=== PATIENT | male | born 1955 | race Caucasian/White ===

== ENCOUNTER 2019-03-02 11:40 | Emergency (ER) | payer BC ==
[2019-03-02] MEDS ORDERED: hydrALAZINE IV* 20 MG/ML VIAL IV SLOW PU ONE (12:18)
--- NOTE | 2019-03-02 12:21 | ED ---
Hypertension - HPI Summary HPI Summary: 64-year-old male presents with high blood pressure today. He states he has had lymph node biopsy today and he noted that his blood pressure increased over 200 after the procedure. He denies any symptoms currently. No chest pain shortness of breath headache or dizziness. No abdominal pain. No nausea or vomiting. Denies any history of high blood pressure. He has no family history of high blood pressure. Has never been on blood pressure medications. - History of Current Complaint Chief Complaint: EDHypertension Stated Complaint: HIGH BLOOD PRESSURE Time Seen by Provider: 03/02/19 12:06 - Allergies/Home Medications Allergies/Adverse Reactions: Allergies Allergy/AdvReac Type Severity Reaction Status Date / Time No Known Allergies Allergy Verified 03/02/19 11:49 PMH/Surg Hx/FS Hx/Imm Hx Endocrine/Hematology History: Denies: Hx Anticoagulant Therapy Cardiovascular History: Denies: Hx Cardiac Arrest Infectious Disease History: No Infectious Disease History: Denies: Traveled Outside the [place] in Last 30 Days - Family History Known Family History: Negative: Hypertension - Social History Alcohol Use: Daily Substance Use Type: Reports: None Smoking Status (MU): Light Every Day Tobacco Smoker Type: Cigarettes Amount Used/How Often: 1/2ppd Length of Time of Smoking/Using Tobacco: 44 years Have You Smoked in the Last Year: Yes Review of Systems Negative: Fever Positive: Other - high bp. Negative: Chest Pain Negative: Shortness Of Breath Negative: Abdominal Pain Negative: Headache All Other Systems Reviewed And Are Negative: Yes Physical Exam Triage Information Reviewed: Yes Vital Signs On Initial Exam: Initial Vitals Temp Pulse Resp BP Pulse Ox 98.5 F 58 16 207/107 95 03/02/19 11:49 03/02/19 11:49 03/02/19 11:49 03/02/19 11:49 03/02/19 11:49 Vital Signs Reviewed: Yes Appearance: Positive: Well-Appearing Skin: Positive: Warm, Dry Head/Face: Positive: Normal Head/Face Inspection Eyes: Positive: Normal, Conjunctiva Clear ENT: Positive: Pharynx normal Respiratory/Lung Sounds: Positive: Clear to Auscultation, Breath Sounds Present Cardiovascular: Positive: Normal, RRR Abdomen Description: Positive: Nontender, Soft Bowel Sounds: Positive: Present Musculoskeletal: Positive: Normal Neurological: Positive: Normal Psychiatric: Positive: Normal Diagnostics - Vital Signs Vital Signs Temp Pulse Resp BP Pulse Ox 03/02/19 11:49 98.5 F 58 16 207/107 95 - Laboratory Result Diagrams: 03/02/19 13:34 03/02/19 13:15 Lab Statement: Any lab studies that have been ordered have been reviewed, and results considered in the medical decision making process. - Radiology chest Radiology Interpretation Completed By: Radiologist Summary of Radiographic Findings: IMPRESSION: NO ACTIVE CARDIOPULMONARY DISEASE. - EKG No standard instances Cardiac Rate: Bradycardia EKG Rhythm: Sinus Bradycardia Summary of EKG Findings: sinus bradycardia Re-Evaluation - Re-Evaluation First Eval Re-Evaluation Time: 13:52 Comment: bp is still 200 Second Eval Re-Evaluation Time: 14:32 Comment: discussed results, bp is still elevated Third Eval Re-Evaluation Time: 15:01 Change: Unchanged Comment: patient still has no symptoms, bp is still elevated. patient states does not want to stay here anymore. patient is asx. discussed will have continue chlorthalidone at home, patient will return if develop chest pain or SOB. patient understand and agrees with plan. Hypertension Course/Dx - Course Course Of Treatment: 64-year-old male presents with high blood pressure today. He states he has had lymph node biopsy today and he noted that his blood pressure increased over 200 after the procedure. He denies any symptoms currently. No chest pain shortness of breath headache or dizziness. No abdominal pain. No nausea or vomiting. Denies any history of high blood pressure. He has no family history of high blood pressure. Has never been on blood pressure medications. On exam has normal physical exam. EKG shows sinus bradycardia. gave hydrazaline and bp did not change. wbc normal. chest xray normal. renal function normal. lft elevated but patient states does drink ETOH daily. will have follow up with primary about such. no abd pain today. gave clonidine and blood pressure same. patient does not want to stay until blood pressure decreases. as is asx discussed will discharge. will start on chlorthalidone. told follow up with primary. patient understand and agrees with plan. - Diagnoses Differential Diagnosis/HQI PQRI: Hypertension, Hypertensive Urgency, Renal Disease Provider Diagnoses: Hypertension Discharge - Sign-Out/Discharge Documenting (check all that apply): Patient Departure Patient Received Moderate/Deep Sedation with Procedure: No - Discharge Plan Condition: Stable Disposition: HOME Prescriptions: Chlorthalidone TAB* [Hygroton TAB*] 25 mg PO DAILY #14 tab Patient Education Materials: DASH Eating Plan (ED), Hypertension (ED) Referrals: Phyllis Sheridan NP [Primary Care Provider] - Additional Instructions: will start on clorthalidone daily follow up with primary about blood pressure and liver function as is elevated at this visit Return to ED if develop chest pain, shortness of breath, or any new or worsening symptoms - Billing Disposition and Condition Condition: STABLE Disposition: Home
[2019-03-02 12:59] LABS: Urine Appearance Cloudy; Urine Bilirubin Negative (Negative); Urine Blood Negative (Negative); Urine Color Yellow; Urine Glucose Negative (Negative); Urine Ketones Negative (Negative); Urine Nitrite Negative (Negative); Urine Protein Negative (Negative); Urine Specific Gravity 1.017 (1.010-1.030); Urine Urobilinogen Positive (Negative)
[2019-03-02] MEDS ORDERED: cloNIDine TAB* 0.1 MG PO ONE (13:52)
[2019-03-02 13:54] LABS: Hematocrit 46 % (42-52); Hemoglobin 15.8 g/dL (14.0-18.0); Mean Corpuscular HGB Conc 35 g/dL (31-36); Mean Corpuscular Hemoglobin 33 pg (27-31); Mean Corpuscular Volume 96 fL (80-94); Red Blood Count 4.75 10^6 /uL (4.18-5.48); Red Cell Distribution Width 14 % (10-15); White Blood Count 5.7 10^3/uL (3.5-10.8)
[2019-03-02 14:03] LABS: Troponin I 0.01 ng/mL (<0.04)
[2019-03-02 14:04] LABS: Albumin 3.7 g/dL (3.2-5.2); BUN/Creatinine Ratio 31.3 (8-20); EGFR African American 213.7 (>60); EGFR Non-African American 176.6 (>60); Globulin 3.7 g/dL (2-4); Potassium 4.2 mmol/L (3.5-5.0); Total Bilirubin 1.3 mg/dL (0.2-1.0); Total Protein 7.4 g/dL (6.4-8.9)
[2019-03-02 14:29] LABS: ABS Basophils 0.1 10^3/ul (0-0.2); ABS Eosinophils 0.2 10^3/ul (0-0.6); ABS Lymphocytes 1.8 10^3/ul (1.0-4.8); ABS Monocytes 0.5 10^3/ul (0-0.8); ABS Neutrophils 3.1 10^3/ul (1.5-7.7); Eosinophil % 3.3 %; Lymphocyte % 32.6 %; Mean Platelet Volume 9.6 fL (7.4-10.4); Nucleated Red Blood Cells % 0.2; Platelet Count 83 10^3/uL (150-450)
[2019-03-02] MEDS ORDERED: Hydrochlorothiazide TAB* 50 MG PO ONE (14:35)
[2019-03-02] MEDS ORDERED: Chlorthalidone TAB* 50 MG PO ONE (14:46)
[2019-03-02 15:16] VITALS: BP 148/82
== END 2019-03-02 15:09 | disposition home or self-care (01) ==
LOC: ED 11:40
DX: I10 Essential (primary) hypertension (principal); F17.210 Nicotine dependence, cigarettes, uncomplicated
CPT/HCPCS: 36415; 71045; 80053; 81003; 84484; 85025; 93005; 96374; 99283; A9270-GY; J0360

== ENCOUNTER → 2019-03-26 12:17 | Day surgery (SDC) | payer BC ==
[~2019-03-26 12:17] MED LIST: Buffered Lidocaine 1% SYRIN* 1 ML/SYRINGE INTRADERM ONE; Bupivacaine 0.5% W/EPI SDV* 30 ML VIAL ONE; Dexamethasone IV* 4 MG/ML 1 ML (4 MG) ONE; Famotidine IV* 10 MG/ML 2 ML (20 mg) IV ONE; Famotidine IV* 10 MG/ML 2 ML (20 mg) ONE; KETAMINE HCL* 50 MG/ML 10 ML VIAL ONE; Ketorolac INJ* 30 MG/ML 1 ML VIAL ONE; Labetalol IV* 5 MG/ML 20 ML VIAL ONE; Lactated Ringers 1000 ML Bag* 1,000 ML IV SCH; Lidocaine 1% INJ* 10 MG/ML 30 ML SDV ONE; Lidocaine 2% PF * 5 ML VIAL ONE; Midazolam* 1 MG/ML 5 ML VIAL (5 MG) ONE; Naloxone* 0.4 MG/ML 1 ML VIAL IV PRN; Ondansetron INJ* 2 MG/ML VIAL IV PRN; Ondansetron INJ* 2 MG/ML VIAL ONE; Propofol* 10 MG/ML 20 ML BTL ONE; ceFAZolin 2 GM in NS PREMIX(*) 2 GM/100 ML BAG IVPB ONE; fentaNYL* 50 MCG/ML 2 ML VIAL (100 MCG VIAL) IV PRN; fentaNYL* 50 MCG/ML 2 ML VIAL (100 MCG VIAL) ONE; hydrALAZINE IV* 20 MG/ML VIAL ONE; oxyCODONE/Acetamin 5/325 MG* TAB PO PRN
[2019-03-26 17:40] VITALS: BP 182/92
--- NOTE | 2019-03-26 21:05 | OP ---
CC: Dr. Dante Ford; Phyllis Sheridan NP * DATE OF OPERATION: 03/26/19 - [facility] DATE OF : 59 SERVICE: General Surgery. ATTENDING SURGEON: Linda Chou MD AIRPLANE GASTANK LINER ASSEMBLER: None. ANESTHESIOLOGIST: Dr. Yomi Snell. ANESTHESIA: Local/MAC anesthesia. PRE-OP DIAGNOSIS: Lymphoma. POST-OP DIAGNOSIS: Lymphoma. OPERATIVE PROCEDURE: Excisional biopsy of right axillary lymph node. SPECIMEN: Right axillary lymph node. ESTIMATED BLOOD LOSS: Approximately 20 cc. INDICATION FOR SURGERY: Mr. Fierro is a 64-year-old gentleman with recently diagnosed lymphoma after work up for incidental right axillary adenopathy discovered on a CT of the chest. He had previously undergone an FNA biopsy of this large right axillary lymph node; however, he now requires an excisional biopsy for further diagnostics and characterization of his lymphoma. He understood the risks, benefits, and alternatives of the procedure and he wished to proceed. DESCRIPTION OF PROCEDURE: The patient was brought back to the operating room and placed on the operating table in supine position. He had an IV placed in his left foot given the difficulty of obtaining peripheral access. Therefore, sequential compression device was not placed. He underwent MAC and local anesthesia and antibiotics were administered. A small bump was placed under his right shoulder. His right arm was placed on an arm board and preoperatively an ultrasound was performed at the bedside showing that the lymph node was somewhat deepand adjacent to the chest wall. It was felt to be very deep, but palpable on exam. An incision was made in the axilla and the axillary fat pad was dissected out and after exploration of the axilla, the lymph node was identified very deep within axilla and adjacent to the chest wall. It was approximately 4 x 3 cm. It was dissected out in its entirety and then was removed from the axilla and sent to the lab as a fresh sample for flow cytometry. After it was excised, careful hemostasis was obtained in the axilla and the cavity was irrigated with saline. Given how deep this the lymph node was , the deep axilllary fat pad was reapproximated using interrupted 3-0 Vicryl sutures and then the skin was closed using running 4-0 Monocryl suture. Sterile dressing was in place. The patient's anesthesia was reversed and he was taken to the PACU in stable condition. At the end of the case, all counts were correct and I was present during the entirety of the case. [id number]/[facility] #: [id number] [facility]
[2019-04-06 17:42] LABS: BLYM Result Summary Negative; BLYM Tissue ID AS19-8118-A
== END | disposition home or self-care (01) ==
LOC: OR 12:17
PROVIDERS: ATTEND Surgery
DX: C85.14 Unspecified B-cell lymphoma, lymph nodes of axilla and upper limb (principal); I10 Essential (primary) hypertension; F17.200 Nicotine dependence, unspecified, uncomplicated; R94.31 Abnormal electrocardiogram [ECG] [EKG]; F10.11 Alcohol abuse, in remission
CPT/HCPCS: 88184; 88185; 88187; 88188; 88189; 88305; 88333; 88341; 88342; 88360; 88365; 88377; J0360; J0690; J1100; J1885; J2250; J2405; J2704; J3010

== ENCOUNTER → 2019-04-15 05:32 | Day surgery (SDC) | payer BC ==
[~2019-04-15 05:32] MED LIST changes: +Acetaminophen TAB* 325 MG PO PRN; -Bupivacaine 0.5% W/EPI SDV* 30 ML VIAL ONE; +Bupivacaine 0.5%* 50 ML MDV VIAL ONE; +Chlorthalidone TAB* 50 MG PO ONE; -Dexamethasone IV* 4 MG/ML 1 ML (4 MG) ONE; +EPHEDrine (Pressors)* 50 MG/ML VIAL ONE; +Esmolol* 10 MG/ML 10 ML (100 mg) ONE; -Famotidine IV* 10 MG/ML 2 ML (20 mg) IV ONE; -Famotidine IV* 10 MG/ML 2 ML (20 mg) ONE; -KETAMINE HCL* 50 MG/ML 10 ML VIAL ONE; -Ketorolac INJ* 30 MG/ML 1 ML VIAL ONE; -Labetalol IV* 5 MG/ML 20 ML VIAL ONE; +amLODIPine TAB* 5 MG PO ONE; -fentaNYL* 50 MCG/ML 2 ML VIAL (100 MCG VIAL) IV PRN; +hydrALAZINE IV* 20 MG/ML VIAL IV SLOW PU ONE; +hydrALAZINE IV* 20 MG/ML VIAL IV SLOW PU PRN; +hydrALAZINE TAB* 10 MG PO ONE; -oxyCODONE/Acetamin 5/325 MG* TAB PO PRN
--- NOTE | 2019-04-15 10:06 | OP ---
DATE OF OPERATION: 04/15/19 [facility] DATE OF : 59 SERVICE: General Surgery. ATTENDING SURGEON: Linda Chou MD. CD REACTOR OPERATOR: None. ANESTHESIOLOGIST: Dr. Evgeny Beltran. ANESTHESIA: Local/MAC. PRE-OP DIAGNOSIS: B-cell lymphoma. POST-OP DIAGNOSIS: B-cell lymphoma. OPERATIVE PROCEDURE: Aborted port placement. INDICATIONS FOR SURGERY: Mr. Fierro is a 64-year-old gentleman with a history of B-cell lymphoma, who requires a port for chemotherapy. He understood the risks, benefits, and alternatives of the surgery, and he wished to proceed. DESCRIPTION OF PROCEDURE: The patient was brought back to the operating room and placed on the operating table in the supine position. Sequential compression devices were placed in the bilateral lower extremities for DVT prophylaxis. Antibiotics were administered. The patient had presented to the hospital with very elevated blood pressures, but he was given antihypertensive medications and his systolics were brought down to 180s. However, Dr. Beltran felt that it will be unsafe to induce general anesthesia. Therefore, we proceeded with performing the procedure with MAC anesthesia. He had a right antecubital peripheral IV that was poorly functional. However, at the start of the case it was functioning fairly well. Therefore, the patient's neck was prepped and draped in normal sterile fashion and then prior to beginning the procedure, time-out was performed verifying the patient's name, MR number, and the procedure to be performed. Using an ultrasound, the right internal jugular vein was identified and approximately 1 cc of local anesthesia consisting of 0.5 % Marcaine and 1% lidocaine was infiltrated into the subcutaneous skin at the neck. However, the patient became very agitated and the IV was noted to be still somewhat difficult to function reliably. It was difficult to obtain an additional IV even though this was attempted several times by Dr. Beltran. Therefore, Dr. Beltran thought it was safest to abort the case in order to allow the patient's blood pressure to be better controlled and induce general anesthesia for this port placement. Given this, a dressing was placed at the patient's neck where the local anesthesia had been infiltrated, and the patient was awoken and transferred to a stretcher and taken to the recovery room in stable condition. At the end of the aborted case, the counts were correct and I was present during the entirety of this case. [id number]/[facility] #: [id number] MTDD
--- NOTE | 2019-04-15 11:16 | CONS ---
CC: Phyllis Sheridan NP* CONSULTATION REPORT: DATE OF CONSULT: 04/15/19 PRIMARY CARE PHYSICIAN: Phyllis Sheridan NP. PROVIDER REQUESTING CONSULT: Linda Chou MD.* REASON FOR CONSULTATION: Severe hypertension. HISTORY OF PRESENT ILLNESS: Mr. Fierro is a 64-year-old man with a history of hypertension and recently diagnosed B-cell lymphoma diagnosed after biopsy of right axillary lymph node last month, who presented today for placement of port for chemotherapy. It seems that in the operating room the patient was noted to have systolic blood pressure slightly above 200 that did not respond well to IV hydralazine, so Anesthesia canceled the procedure and the patient is now in the PACU. Medicine consulted for blood pressure management. On interview with the patient, it appears that he takes chlorthalidone 25 mg at home and no other blood pressure medications. He does take naproxen occasionally, but has not taken it recently. He reports that he had no idea that his blood pressure should remain under 130/80, and he reports that his blood pressure is nearly always much higher than this. He states that on morning of procedure he forgot to take his morning chlorthalidone because he was incredibly anxious and since he has been here he has been experiencing a lot of anxiety. He denies headache, chest pain, blurry vision, or shortness of breath. PAST MEDICAL HISTORY: 1. Hypertension. 2. B-cell lymphoma diagnosed in March 2019. 3. Alcohol use disorder. 4. History of hepatitis C. HOME MEDICATIONS: 1. Chlorthalidone 25 mg daily. 2. Naproxen 220 mg every 12 hours as needed for pain. ALLERGIES: No known drug allergies. FAMILY HISTORY: The patient's father had hypertension. His mother had colon cancer, unknown age diagnosis. She also had breast cancer. SOCIAL HISTORY: The patient lives with his partner Kalpana. He is an active smoker and currently smokes approximately half a pack per day and has a total of about 40- pack-year history. The patient also reports frequently drinking alcohol, sometimes he has a 6-pack in 1 day, sometimes it takes him a week to finish a 6-pack. His last drink was last night when he had 4 beers. He denies recreational drug use. He works in construction. REVIEW OF SYSTEMS: A complete 10-point review of systems was performed and pertinent positives and negatives are listed. PHYSICAL EXAM: Afebrile, heart rate 50s, blood pressure 195/99, respiratory rate 16, oxygen saturation 97% on room air. General: He is a well-appearing man in no acute distress, mildly anxious appearing, pleasant, interactive. HEENT: OP clear, moist mucous membranes. Neck: No JVD. Lungs: Clear to auscultation bilaterally. Heart: Regular rate and rhythm. No murmurs, gallops , or rubs. Abdomen: Soft, nontender, nondistended. Extremities: Warm and well perfused. No edema. Neuro: No focal motor deficits. DIAGNOSTIC STUDIES/LAB DATA: Last month had pre-op labs. Macrocytosis without anemia. Creatinine 0.68. AST/ALT 212/175. Hemoglobin A1c 5.5%. ASSESSMENT AND PLAN: Mr. Fierro is a 64-year-old male with B-cell lymphoma and uncontrolled hypertension, who is presenting for port placement today by Surgery, who was found with severe hypertension in the OR, Medicine consulted for blood pressure control. 1. Severe hypertension. The patient missed his morning dose of chlorthalidone. We will restart that now and also add on amlodipine, which should together bring down his blood pressure to stated goal for OR, which is less than 180 systolic. If further blood pressure control is needed, can repeat doses of IV hydralazine, would avoid swathi blocking agents such as IV metoprolol given the patient already has heart rate in the 50s. The patient has been educated on blood pressure goals and need for close outpatient followup for further blood pressure management with goal to prevent heart disease and stroke. The patient educated on relationship between naproxen and elevated blood pressure, reports he has not taken this in days. 2. Active tobacco use. The patient is cutting down from 1 pack to now 1/2 a pack per day. He declines nicotine replacement therapy. He was counseled on other medical options such as Chantix or Wellbutrin. He is aware that he can ask his primary care physician for these. 3. Alcohol use disorder. Labs from last month show elevated AST/ALT, concerning for hepatitis from alcohol use. The patient is not exhibiting any signs of alcohol withdrawal or cirrhosis. The patient educated on the importance of cutting back on his alcohol use. TIME SPENT: Approximately 60 minutes was spent on consultation of this patient , more than half of which was spent at bedside for interview and exam. Thank you for this interesting consult. [id number]/[facility] #: [id number] [place]
[2019-04-15 16:02] VITALS: BP 189/100
== END | disposition home or self-care (01) ==
LOC: OR 05:32
PROVIDERS: ATTEND Surgery
DX: C85.14 Unspecified B-cell lymphoma, lymph nodes of axilla and upper limb (principal); I10 Essential (primary) hypertension; F17.210 Nicotine dependence, cigarettes, uncomplicated
CPT/HCPCS: 76000; A9270-GY; J0360; J0690; J1642; J2250; J2405; J2704; J3010; J3490

== ENCOUNTER 2019-04-15 18:22 | Day surgery (SDC) | payer BC ==
[2019-04-15] MEDS ORDERED: ceFAZolin 2 GM in NS PREMIX(*) 2 GM/100 ML BAG IVPB ONE (20:30)
[2019-04-15] MEDS ORDERED: Heparin 2 UNITS/ML IVPREMIX* 0 ML IV ONE (21:01)
[2019-04-15] MEDS ORDERED: fentaNYL* 50 MCG/ML 2 ML VIAL (100 MCG VIAL) IV PRN (21:12)
[2019-04-15] MEDS ORDERED: DiMENhydriNATE IV* 50 MG/ML VIAL IV PUSH PRN (21:12)
[2019-04-15] MEDS ORDERED: oxyCODONE/Acetamin 5/325 MG* TAB PO PRN (21:12)
[2019-04-15] MEDS ORDERED: Naloxone* 0.4 MG/ML 1 ML VIAL IV PRN (21:12)
[2019-04-15] MEDS ORDERED: Acetaminophen TAB* 325 MG PO PRN (21:12)
[2019-04-15] MEDS ORDERED: hydrALAZINE IV* 20 MG/ML VIAL ONE (22:15)
[2019-04-15] MEDS ORDERED: hydrALAZINE IV* 20 MG/ML VIAL IV SLOW PU PRN (22:18)
[2019-04-15 23:11] VITALS: BP 177/99
--- NOTE | 2019-04-16 01:41 | OP ---
CC: Dr. Dante Ford * DATE OF OPERATION: 04/15/19 - [facility] DATE OF : 59 SERVICE: General surgery. ATTENDING SURGEON: Linda Chou MD. HISTOPATHOLOGY TECHNICIAN: None. ANESTHESIOLOGISTS: Dr. Evgeny Beltran and Dr. Annabella Bailey. ANESTHESIA: General endotracheal anesthesia. PRE-OP DIAGNOSIS: B-cell lymphoma. POST-OP DIAGNOSIS: B-cell lymphoma. OPERATIVE PROCEDURE: Placement of 8-Spanish port in the internal jugular vein on the right side. DEVICES: 8-Spanish port. ESTIMATED BLOOD LOSS: Minimal, less than 10 cc. INDICATIONS FOR SURGERY: Mr. Fierro is a very pleasant 64-year-old gentleman with a history of hypertension who has a new diagnosis of B-cell lymphoma and required a port placement. Of note, early in the morning, he came in for his surgery initially; however, he was very hypertensive. Therefore, the surgery had to be aborted and he presents this evening with improved pressure control and therefore is able to undergo general anesthesia. He understood the risks, benefits, and alternatives of the surgery and he wished to proceed. DESCRIPTION OF PROCEDURE: The patient was brought back to the operating room and placed on the operating table in the supine position. Sequential compression devices were placed in the bilateral lower extremities for DVT prophylaxis. Antibiotics with Ancef were administered. General endotracheal anesthesia was induced, and the patient's right neck and chest wall were prepped and draped in normal sterile fashion. Prior to beginning the procedure , time-out was performed, verifying the patient's name, MR number, and the procedure to be performed. Next, local anesthesia consisting of 0.5% Marcaine and 1% lidocaine was infiltrated into the right neck subcutaneous plane above the internal jugular vein under ultrasound guidance. Next, using a finder needle, the right internal jugular vein was entered under direct visualization. Dark venous blood was aspirated very easily and a guidewire was placed through the finder needle. Under fluoroscopy, the wire was confirmed to be descending into the right atrium and right ventricle and therefore, the needle was removed and the wire was secured to the drape so that it would not be dislodged. Next, an incision was made on the right chest wall approximately 3 fingerbreadths below the clavicle and lateral to the sternum. The skin was divided down to the subcutaneous tissue and a subcutaneous pocket was developed for placement of the port. It fit the port very well; therefore, 2 stay sutures were placed to loosely secure the port to the chest wall using 3-0 Prolene suture. However, they were not tied in order to allow for the catheter to be later secured to the port. Next, local anesthesia was infiltrated into the right chest wall as well as in the direction where the catheter was to be tunneled. The catheter was then tunneled from the port site up towards the neck where the wire was coming out, and after this was done, the peel-away sheath with the introducer was advanced over the guidewire, and introducer and the guidewire were then removed. Under fluoroscopy, the sheath was noted to be in place again descending down into the right atrium and therefore, the catheter was placed through the peel-away sheath and advanced through the sheath as the sheath was being pulled away. Once this was done, the catheter was confirmed to be in place under fluoroscopy and then was pulled back to an approximate point where it was just below the cavoatrial junction. It was cut at the skin level and then it was secured to the port. Once this was done, the port was then further secured to the chest wall by tying 3-0 Prolene sutures that were previously placed, and a Pelayo needle was used to aspirate the port. It aspirated blood very easily and it also infused saline very easily. Next, attention was turned towards closure. Hemostasis was obtained in the subcutaneous pocket. The dermis of the skin at the port site was closed using interrupted 3-0 Vicryl sutures. The skin was closed using a running 4-0 Monocryl suture, and an interrupted 4-0 Monocryl suture was placed at the neck where a skin cecy had been made for the wire and for the catheter to be placed. At the end of the case, a final check with fluoroscopy was performed showing again that the catheter was in place just below the cavoatrial junction and heparinized saline was then infused through the port without difficulty. Sterile dressing was then placed. The patient's anesthesia was reversed and he was taken to the PACU in stable condition. At the end of the case, all counts were correct and I was present during the entirety of the case. In the recovery room a CXR was performed that showed that the catheter was in place at the cavoatrial junction and there was no evidence of a pneumothorax. [id number]/[facility] [place] #: [id number] [facility]ITAL[facility]ico[facility]
== END 2019-04-15 23:10 | disposition home or self-care (01) ==
LOC: OR 18:22
PROVIDERS: ATTEND Surgery
DX: C85.14 Unspecified B-cell lymphoma, lymph nodes of axilla and upper limb (principal); F17.210 Nicotine dependence, cigarettes, uncomplicated; R01.1 Cardiac murmur, unspecified; I10 Essential (primary) hypertension; R05 Cough; Z86.19 Personal history of other infectious and parasitic diseases; F10.20 Alcohol dependence, uncomplicated
CPT/HCPCS: 71045; C1788; J0360; J0690; J1644

== ENCOUNTER 2019-07-18 18:30 | Inpatient (IN) | payer BC ==
[2019-07-18] MEDS ORDERED: LORazepam INJ* 2 MG/ML 1 ML VIAL IV ONE (18:40)
[2019-07-18] MEDS ORDERED: Diltiazem IV push/loading dose 5 MG/ML 5 ML vial (25 mg) IV SLOW PU ONE (18:42)
--- NOTE | 2019-07-18 18:44 | ED ---
Shortness of Breath - HPI Summary HPI Summary: Patient is a 64 y/o M presenting to [facility] via EMS for respiratory distress. He has had increased SOB but is unsure for how long. Patient additionally endorses N/V/D and abdominal pain. EMS had reported that the patient was hypoxic, cyanotic, and fighting to take off his oxygen mask during transport. EMS report initial o2 sat in low 80s. PMHx of B-cell lymphoma, HTN, cirrihosis and hep C is noted. Patient is on chemotherapy. Home medications and allergies are reviewed. - History of Current Complaint Hx Obtained From: Patient, EMS Onset/Duration: Still Present Timing: Constant Current Severity: Severe Associated Signs & Symptoms: Negative - Allergy/Home Medications Allergies/Adverse Reactions: Allergies Allergy/AdvReac Type Severity Reaction Status Date / Time No Known Allergies Allergy Verified 06/08/19 09:59 Home Medications: Home Medications Oxycodone IR 10 MG(NF) 1 - 2 tab PO Q4HR PRN 07/18/19 [History Confirmed ] PMH/Surg Hx/FS Hx/Imm Hx Endocrine/Hematology History: Denies: Hx Anticoagulant Therapy, Hx Bone Marrow Disease, Hx Diabetes, Hx Sickle Cell Disease, Hx Thyroid Disease, Hx Anemia Cardiovascular History: Reports: Hx Hypertension - ON CHLORTHALIDONE Denies: Hx Cardiac Arrest, Hx Pacemaker/ICD, Other Cardiovascular Problems/ Disorders Respiratory History: Denies: Other Respiratory Problems/Disorders - DENIES, BUT COUGH NOTED SEVERAL TIMES DURING PH INTERVIEW GI History: Reports: Hx Cirrhosis - STATES LIVER IS "ENLARGED" Denies: Hx Gastroesophageal Reflux Disease, Other GI Disorders History: Reports: Hx Kidney Stones - 2 YRS AGO Denies: Hx Renal Disease, Other Problems/Disorders Musculoskeletal History: Denies: Other Musculoskeletal History Sensory History: Denies: Hx Contacts or Glasses, Hx Hearing Aid Opthamlomology History: Denies: Hx Contacts or Glasses Neurological History: Denies: Other Neuro Impairments/Disorders Psychiatric History: Denies: Hx Panic Disorder - Cancer History Hx Chemotherapy: Yes - Surgical History Surgery Procedure, Year, and Place: GB 1979. LYMPH NODE REMOVAL 03/2019. DIFFICULT IV STICK, USE VASCULAR US ONLY Hx Anesthesia Reactions: No Infectious Disease History: Reports: Hx Hepatitis - + HEP.C NOT ON ANY MEDS - Family History Known Family History: Negative: Hypertension - Social History Alcohol Use: Weekly Alcohol Amount: 1 CASE BEER / WEEK-STATES WILL NOT DRINK DAY BEFORE SURGERY Substance Use Type: Reports: None Smoking Status (MU): Heavy Every Day Tobacco Smoker Type: Cigarettes Amount Used/How Often: 1/2 TO 3/4 ppd SINCE AGE 20 Length of Time of Smoking/Using Tobacco: 44 years Have You Smoked in the Last Year: Yes Review of Systems Constitutional: Other - EMS reports hypoxia, cyanosis Positive: Shortness Of Breath Positive: Abdominal Pain, Vomiting, Diarrhea, Nausea All Other Systems Reviewed And Are Negative: Yes Physical Exam - Summary Physical Exam Summary: Appearance: The patient is well-nourished in extremis. Skin: The skin is warm and dry. He is mildly jaundiced. HEENT: The head is normocephalic and atraumatic. The pupils are equal and reactive. There is mild scleral icterus. Nares are patent and without drainage. Mouth reveals moist mucous membranes, and the throat is without erythema and exudate. The external ears are intact. The ear canals are patent and without drainage. The tympanic membranes are intact. Neck: The neck is supple with full range of motion and non-tender. There are no carotid bruits. There is no neck vein distension. Respiratory: Chest is non-tender. Lungs are clear to auscultation and breath sounds are symmetrical and equal. He is tachypneic. It is difficult to communicate with the patient secondary to tachypnea. Cardiovascular: Irregular tachycardia is noted. There is no murmur or rub auscultated. There is no peripheral edema and pulses are symmetrical and equal. Abdomen: Abdomen is distended and there are dull sounds to percussion. Musculoskeletal: There is no back tenderness noted. Extremities are non-tender with full range of motion. There is good capillary refill. There is no peripheral edema or calf tenderness elicited. Neurological: Patient is alert and oriented to person, place and time. He answers questions appropriately. The patient has symmetrical motor strength in all four extremities. Cranial nerves are grossly intact. Deep tendon reflexes are symmetrical and equal in all four extremities. Psychiatric: The patient has an appropriate affect and does not exhibit any anxiety or depression. Triage Information Reviewed: Yes Vital Signs On Initial Exam: Initial Vitals Temp Pulse Resp BP Pulse Ox 98.8 F 153 42 124/52 0 07/18/19 18:36 07/18/19 18:36 07/18/19 18:36 07/18/19 18:36 07/18/19 18:36 Vital Signs Reviewed: Yes Procedures - Procedure Summary Procedure Summary: Orotracheal 8.0 cm tube was placed with no sedation usage. No complications during procedure, breath sounds are equal after tube placement. CXR post procedure showed ET tube in place. - Sedation Patient Received Moderate/Deep Sedation with Procedure: No - Intubation Intubation Method: orotracheal Tube Size (cm): 8.0 Breath Sounds after Intubation: equal Intubation Complications: no complications Post Intubation Xray: Yes Progress/Xray Impression: ET tube in place Diagnostics - Laboratory Result Diagrams: 07/18/19 18:44 07/18/19 18:44 Lab Statement: Any lab studies that have been ordered have been reviewed, and results considered in the medical decision making process. - Radiology CXR Radiology Interpretation Completed By: ED Physician Summary of Radiographic Findings: No acute process, pending official report. Post Intubation CXR Radiology Interpretation Completed By: ED Physician Summary of Radiographic Findings: ET tube in place, pending official report. - EKG 1851 Cardiac Rate: Tachycardia - rate of 116 BPM, sinus tachycardia versus MAT. Summary of EKG Findings: EKG showed rate of 116, sinus tachycardia versus MAT. This EKG was reviewed and interpreted by Dr. Blood. 2004 Cardiac Rate: NL - rate of 94 BPM EKG Rhythm: Sinus Rhythm ST Segment: Non-Specific Summary of EKG Findings: EKG showed NSR with rate of 94 BPM, diffuse non- specific ST segments. This EKG was reviewed and interpreted by Dr. Blood. Re-Evaluation - Re-Evaluation First Eval Re-Evaluation Time: 19:38 Comment: BP 55/36, fluids via pressure bag being administered. Course/Dx - Course Course Of Treatment: Mr. Fierro presented in extremis. He was on 100% nonrebreather mask and tachypneic and tachycardic. He was immediately placed on a monitor and evaluated. EMS crew reported that he had been very clear that he did not want to be intubated or on a breathing machine. His initial evaluation revealed him to be tachycardic and irregularly, tachypneic with clear lungs and grossly distended throughout the abdomen with dull percussion. I took his forehead temperature in the room and got 99.7. We had a great deal of difficulty getting a pulse ox to read for him and an ABG was immediately sent. He was switched to BiPAP and given Ativan to help tolerate that as he was very agitated. He was given a bolus of Cardizem for his irregular tachycardia in the 150-160 range. He gradually slowed down and an EKG was obtained which showed a sinus tachycardia at about 100. He became poorly responsive after the Ativan. Initially I was concerned that his diaphragmatic excursion may be part of the problem and was hesitant to give him fluids. A forehead thermometer in the hands of nursing revealed a temp 100.9 and his white blood cells returned at 0.4. At this point he met septic criteria and fluids and cefepime were ordered for him. His ABG revealed him to be likely a respiratory compensation for metabolic acidosis. Indeed his lactate returned at 14. I spoke with Dr. Ford who agreed that he needed to be admitted to the ICU. I spoke with Dr. Schwab who requested the hospitalist be involved. Just after speaking with Dr. Schwab the patient dropped his pressure and we increased fluids. His girlfriend arrived and stated that he has never had a conversation about advanced directives and that she feels he was likely confused in the ambulance ride in. At that point he was very poorly responsive and hypotensive and therefore he was intubated without medications. It was clear that he likely aspirated and I intubated him as I had to suction a lot of brown liquid out of his mouth. He did respond to fluids and his pressure improved. I spoke with Dr. Kaplan for the hospitalist who immediately came to the department to evaluate him. - Diagnoses Provider Diagnoses: Neutropenic sepsis, Neutropenic fever - Physician Notifications Discussed Care of Patient With: Dante Ford Time Discussed With Above Provider: 19:30 Instructed by Provider To: Other - 193 - Patient's case was discussed with Dr. Ford, Dr. Ford recommends admission to ICU. 1933 - Patient's case was discussed with Dr. Marin, Dr. Marin asks that the patient's case be discussed with hospitalist. 1944 - Patient's case was discussed with Dr. Kaplan, Dr. Kaplan accepts for admission. - Critical Care Time Critical Care Time: 75-104 min - 90 minutes Discharge ED - Sign-Out/Discharge Documenting (check all that apply): Patient Departure - admit - Discharge Plan Condition: Fair Disposition: ADMITTED TO [facility] - Billing Disposition and Condition Condition: FAIR Disposition: Admitted to [facility] - Attestation Statements Document Initiated by Chris: Yes Documenting Scribe: MARK ALAN Provider For Whom Chris is Documenting (Include Credential): KANNAN BLOOD MD Scribe Attestation: IMARK, scribed for KANNAN BLOOD MD on 07/18/19 at 2119. Scribe Documentation Reviewed: Yes Provider Attestation: The documentation as recorded by the MARK stevenson accurately reflects the service I personally performed and the decisions made by me, KANNAN BLOOD MD Status of Scribe Document: Viewed
[2019-07-18] MEDS ORDERED: Lorazepam PYXIS KEY ONE (18:45)
[2019-07-18 19:03] LABS: Hematocrit 33 % (42-52); Hemoglobin 10.9 g/dL (14.0-18.0); Mean Corpuscular HGB Conc 33 g/dL (31-36); Mean Corpuscular Hemoglobin 34 pg (27-31); Mean Corpuscular Volume 101 fL (80-94); Mean Platelet Volume 10.6 fL (7.4-10.4); Platelet Count 34 10^3/uL (150-450); Red Blood Count 3.24 10^6 /uL (4.18-5.48); Red Cell Distribution Width 16 % (10-15); White Blood Count 0.4 10^3/uL (3.5-10.8)
[2019-07-18 19:12] LABS: INR 2.04 (0.82-1.09)
[2019-07-18 19:17] LABS: ALT 46 U/L (7-52); AST 47 U/L (13-39); Albumin 2.4 g/dL (3.2-5.2); Alkaline Phosphatase 59 U/L (34-104); Anion Gap 19 mmol/L (2-11); BUN/Creatinine Ratio 18.1 (8-20); Blood Urea Nitrogen 38 mg/dL (6-24); C Reactive Protein 129.92 mg/L (<8.01); CO2 Carbon Dioxide 18 mmol/L (22-32); Calcium 8.4 mg/dL (8.6-10.3); Chloride 98 mmol/L (101-111); EGFR African American 38.9 (>60); EGFR Non-African American 32.2 (>60); Globulin 2.5 g/dL (2-4); Glucose 132 mg/dL (70-100); Potassium 3.7 mmol/L (3.5-5.0); Sodium 135 mmol/L (135-145); Total Protein 4.9 g/dL (6.4-8.9)
[2019-07-18 19:24] LABS: ABS Lymphocytes 0.1 10^3/ul (1.0-4.8); Lymphocyte % 23.5 %; Microcytosis 1+
[2019-07-18 19:26] LABS: ABS Neutrophils 0.3 10^3/ul (1.5-7.7)
[2019-07-18] MEDS ORDERED: NS 0.9% 1000 ML** 2,000 ML IV ONE (19:28)
[2019-07-18] MEDS ORDERED: Cefepime(*) 1 GM in NS 0.9% 50 ML* 50 ML IVPB ONE (19:33)
[2019-07-18] MEDS ORDERED: NS 0.9% 1000 ML** 1,000 ML IV ONE ×3 (19:33→21:32)
[2019-07-18] MEDS ORDERED: Norepinephrine 16MCG/ML IVPRE* 0 MCG/0 ML BAG IV ONE (19:55)
[2019-07-18] MEDS ORDERED: Cefepime 1 GM in Dextrose(*) 1 GM/50 ML BAG IV ONE (20:00)
[2019-07-18] MEDS: Propofol* 100 ML IV SCH ×2 (20:37→21:47)
[2019-07-18 20:56] LABS: Urine Creatinine Concentration 293.02 mg/dL; Urine Sodium Concentration < 18 mmol/L
[2019-07-18] MEDS ORDERED: Vancomycin(*) 1,500 MG in NS 0.9% 250 ML* 250 ML IVPB ONE (21:00)
[2019-07-18 21:01] LABS: Magnesium 1.7 mg/dL (1.9-2.7)
[2019-07-18] MEDS ORDERED: Magnesium Sulfate 2 GM IV* 2 GM/50 ML BAG IVPB ONE (21:22)
[2019-07-18 21:27] LABS: Urine Appearance Cloudy; Urine Bacteria Absent (Absent); Urine Bilirubin Negative (Negative); Urine Blood 1+ (Negative); Urine Color Amber; Urine Glucose 1+(50 mg/dL) (Negative); Urine Ketones Trace (Negative); Urine Nitrite Negative (Negative); Urine Protein 1+(30 mg/dL) (Negative); Urine Red Blood Cell Absent (Absent); Urine Specific Gravity 1.024 (1.010-1.030); Urine Urobilinogen Positive (Negative); Urine White Blood Cell 2+(11-20/hpf) (Absent)
[2019-07-18 21:28] LABS: Fibrinogen > 230.1 mg/dL (110.8-404.3)
[2019-07-18 21:29] LABS: LDH 229 U/L (140-271)
[2019-07-18] MEDS: Norepinephrine 16MCG/ML IVPRE* 4,000 MCG/250 ML BAG IV SCH ×3 (21:29→23:48)
[2019-07-18 22:03] LABS: Uric Acid 4.3 mg/dL (4.4-7.6)
--- NOTE | 2019-07-18 22:29 | ED ---
ED Procedures - Procedure Summary Procedure Summary: Orotracheal 8.0 cm tube was placed with no sedation usage. No complications during procedure, breath sounds are equal after tube placement. CXR post procedure showed ET tube in place. - Central Line Left Subclavian Triple Lumen Central Venous Catheter Central Line Lumen: triple Central Line Procedure: betadine prep, sterile drapes applied, sterile dressing applied Central Line Position: subclavian (L) Anesthesia: Lidocaine cc's of anesthesia: 5 Complications: aspirated some air on first pass Central Line Post Position: sutured, good blood return - Intubation Intubation Method: orotracheal Tube Size (cm): 8.0 Breath Sounds after Intubation: equal Intubation Complications: no complications Post Intubation Xray: Yes Progress/Xray Impression: ET tube in place
[2019-07-18 22:47] LABS: Hematocrit 28 % (42-52); Hemoglobin 8.8 g/dL (14.0-18.0); Mean Corpuscular HGB Conc 32 g/dL (31-36); Mean Corpuscular Hemoglobin 34 pg (27-31); Mean Corpuscular Volume 106 fL (80-94); Mean Platelet Volume 9.3 fL (7.4-10.4); Platelet Count 17 10^3/uL (150-450); Red Blood Count 2.61 10^6 /uL (4.18-5.48); Red Cell Distribution Width 17 % (10-15); White Blood Count 0.4 10^3/uL (3.5-10.8)
[2019-07-18 22:48] LABS: ABS Lymphocytes 0.1 10^3/ul (1.0-4.8); ABS Neutrophils 0.3 10^3/ul (1.5-7.7); Eosinophil % 0.4 %; Lymphocyte % 28.9 %; Nucleated Red Blood Cells % 0.2
[2019-07-18 23:00] LABS: Anion Gap 14 mmol/L (2-11); BUN/Creatinine Ratio 14.7 (8-20); Blood Urea Nitrogen 36 mg/dL (6-24); CO2 Carbon Dioxide 17 mmol/L (22-32); Calcium 7.4 mg/dL (8.6-10.3); Chloride 107 mmol/L (101-111); EGFR African American 32.6 (>60); EGFR Non-African American 26.9 (>60); Potassium 4.2 mmol/L (3.5-5.0); Sodium 138 mmol/L (135-145)
[2019-07-18] MEDS ORDERED: Vasopressin* 100 UNITS in D5W 250 ML BAG* 245 ML IV SCH (23:00)
[2019-07-18] MEDS ORDERED: fentaNYL INFUSION 50 MCG/ML* 2,500 MCG/50 ML BAG IV SCH (23:00)
[2019-07-18 23:02] LABS: Glucose 24 mg/dL (70-100)
[2019-07-18] MEDS ORDERED: Dextrose 50% VIAL 50 ml ONE (23:02)
[2019-07-18 23:04] LABS: Troponin I 0.25 ng/mL (<0.04)
--- NOTE | 2019-07-19 | ED ---
ED Procedures - Procedure Summary Procedure Summary: Orotracheal 8.0 cm tube was placed with no sedation usage. No complications during procedure, breath sounds are equal after tube placement. CXR post procedure showed ET tube in place. - Chest Tube Left Upper Anterior Chest Tube Location: mid clavicular line Chest Tube Procedure: betadine prep, sterile drapes applied, sterile dressing applied Anesthesia: 1% Lidocaine Franklin of Air [place]: No Number of Attempts: 1 Tube Sutured to Skin: Yes Post Procedure CXR?: Yes - reinflation of left lung successful - Intubation Intubation Method: orotracheal Tube Size (cm): 8.0 Breath Sounds after Intubation: equal Intubation Complications: no complications Post Intubation Xray: Yes Progress/Xray Impression: ET tube in place
--- NOTE | 2019-07-19 00:05 | HP ---
HISTORY AND PHYSICAL: DATE OF ADMISSION: 07/18/19 ADMITTING PROVIDER: Ben Kaplan MD. PRIMARY CARE PROVIDER: Phyllis Sheridan NP. OUTPATIENT ONCOLOGIST: Dr. Ford. CHIEF COMPLAINT: Altered mental status, respiratory distress. HISTORY OF PRESENT ILLNESS: Tom Fierro is a 64-year-old male with past medical history of hypertension, alcoholism, chronic hepatitis C infection, and recently B cell lymphoma for which he has been receiving chemotherapy. He had his last chemotherapy approximately a week prior to presentation, perhaps . He is not able to provide history as he is currently intubated. His girlfriend, Kalpana, says that he has been altered for the last 2 days and "talking crazy." Throughout the day prior to admission had some diarrhea. He has a recent prescription for oxycodone 10 mg to 20 mg q.4 hours p.r.n. She is not sure how much he has been taking. There was concern that he was wheezing and Kalpana called the brother and they transferred him to [facility] Emergency Room. He was initially found to be afebrile at 98.8, but pulse rate was 153, blood pressure 124/52. He was thought to be in multifocal atrial tachycardia and he was given 25mg of IV diltiazem and 1mg of Ativan in the emergency room. He then was spiking fevers, initially 100.9 and then up to 104.5, and he had neutropenia with ANC of 300, bandemia at 13%, INR of 2.0. D-dimer elevated, greater than 1050. Lactic acid of 14.9. Troponin was 0.2. CRP 129, BNP 353, and creatinine bumped at 2.10. Initial ABG, pH of 7.34, PCO2 of 26, PO2 of 177 , bicarb of 17.1. Blood cultures were drawn. He was more agitated after the Ativan and was not tolerating the Bipap and his pressures had fallen to 55/36 and he was intubated for airway protection and respiratory distress. He was given cefepime for neutropenic fever and referred to the hospitalist service for admission and the laborer carpentry dock service had also been notified of his case. He had been started on sepsis fluid bolus and his pressures stabilized, but after initiation of propofol they fell again to 75/45. PAST MEDICAL HISTORY: B-cell lymphoma, on chemotherapy, last approximately 6 days prior to admission; alcoholism; chronic hepatitis C infection since 1988 at least; and hypertension. MEDICATIONS: Included chlorthalidone 25 mg daily and oxycodone 10 mg to 20 mg q.4 hours p.r.n. ALLERGIES: No known drug allergies. FAMILY HISTORY: Father with CAD and CABG; he at age 90. Mother with breast cancer and colon cancer at age 89. He has 2 siblings, unknown health status of those, and a daughter who is 30. SOCIAL HISTORY: The patient is a current smoker of 1-1/2 packs per day for 43 years, 6-pack 3 to 4 times a week. Remote cocaine use. He works as a arriola. His next of kin is listed as sister, Jazmine Fierro. REVIEW OF SYSTEMS: Not obtainable other than as provided by HPI. PHYSICAL EXAMINATION GENERAL APPEARANCE: Acutely ill, intubated. VITAL SIGNS: T-max 104.9; pulse rate initially 155 highest, currently 95; respiratory rate worst was 45; initially was satting 100% on 100% oxygen; blood pressure low at 55/31, currently 75/45. HEENT: Intubated. Pupils reactive 1.5 to 1 on the left, barely reactive on the right. LUNGS: Equal breath sounds anteriorly. No wheezing, rales, or rhonchi. CARDIOVASCULAR: Regular rate and rhythm. No murmurs, rubs, or gallops. ABDOMEN: Soft, distended. No flinching to modest palpation. EXTREMITIES: Warm and well perfused. No peripheral edema. NEUROLOGIC: He reportedly had been able to talk prior to the Ativan, currently intubated, SKIN: No lesions or rashes. DIAGNOSTIC STUDIES/LABORATORY DATA: Labs: White count 0.4, hemoglobin 10.9, hematocrit 33, platelets 34, ANC 300, bands equal 13.0%, INR 2.04, fibrinogen pending. D-dimer greater than 1050. ABG, pH 7.34, PCO2 of 26, PO2 of 177, bicarb 17.1. Sodium 135, potassium 3.7, chloride 98, carbon dioxide 18, anion gap 19, BUN 38, creatinine 2.10, glucose 132, lactic acid 14.9, uric acid pending, calcium 8.4, magnesium 1.7. AST 47, ALT 46, T-bili 2.8. Troponin 0.2 , CRP 129, BNP 353. Total protein 4.9, albumin 2.4. Urine creatinine 293, urine sodium less than 18. Imaging: Chest x-ray formal read pending. Initially, no acute process per my read. He had a repeated chest x-ray after intubation which seems a little more consistent with some interstitial edema. ET tube in place. CT head, formal read pending. CT chest, abdomen, and pelvis noncontrast, formal read pending. EKG demonstrated initially sinus tachycardia, heart rate 116. No ST elevations or depressions. QTc 436. Repeat EKG at 2004, sinus rhythm, rate 94. No ST elevations or depressions. ASSESSMENT AND PLAN: Tom Fierro is a 64-year-old male with past medical history of B-cell lymphoma; on chemotherapy; last approximately 6 days ago, chronic hepatitis C, alcoholism, and hypertension presenting with neutropenic fever, sepsis, acute respiratory failure in the setting of some altered mental status for 2 days, vomiting, and diarrhea. 1. Sepsis. He has bandemia, neutropenic fever and severe lactic acidosis. He is getting sepsis fluid boluses and starting on Levophed if necessary as his pressures have dropped again while intubated and on propofol (will trial off). Repeat lactic acidosis. He has gotten cefepime. We will give him 1 dose of vancomycin. Source is unclear, and still waiting on urinalysis. Per history, probably an aspiration risk given the recent vomiting, altered mental status and high dose of opioids. Add sputum culture, follow up blood cultures, UA, and urine culture. We will repeat the cefepime after weight is entered and can calculate renal dosing. He will be put on neutropenic precautions. We will do MRSA nares. 2. He has acute kidney injury and his FENa is 0.1 consistent with prerenal. He is getting sepsis fluid boluses and maintenance IV fluid for BMP daily. Garcia catheter is to be in place for hemodynamic monitoring and urine output with strict Is and Os. 3. He has elevated troponin. No ischemic changes on EKG, but trend troponins every 3 hours. He has had recent echocardiogram over the summer. Full report is not available, but EF was 65% to 70%. He does have elevated BNP, troponin, and D- dimer. I am getting an ultrasound of his bilateral lower extremities and a ventilation perfusion scan in the morning to rule out pulmonary embolism given his cancer history, tachycardia, and shortness of breath. 4. His platelets are only 34, down from 80 two days prior and has some risk for disseminated intravascular coagulation, awaiting fibrinogen. He is on chemotherapy. I am awaiting LDH and uric acid. He is critically ill and per the girlfriend at the bedside, he is full code. We will get input of oncology in the morning and will be taken over by the laborer carpentry dock service. [id number]/[facility] #: [id number] CONSTANT[place]
[2019-07-19] MEDS ORDERED: Dextrose 50% VIAL 50 ml ONE (00:38)
[2019-07-19] MEDS ORDERED: Dextrose 50% VIAL 50 ml IV ONE ×2 (00:40→07:15)
[2019-07-19] MEDS ORDERED: Sodium Bicarbonate 8.4% IV* 100 MEQ in D5W 1000 ML BAG* 1,000 ML IV SCH (01:00)
[2019-07-19] MEDS: Norepinephrine 16MCG/ML IVPRE* 4,000 MCG/250 ML BAG IV SCH ×2 (02:02→14:40)
[2019-07-19] MEDS ORDERED: Pantoprazole IV* 40 MG IV ONE (03:39)
[2019-07-19 03:41] LABS: ABS Lymphocytes 0.1 10^3/ul (1.0-4.8); ABS Monocytes 0.1 10^3/ul (0-0.8); ABS Neutrophils 0.1 10^3/ul (1.5-7.7); Eosinophil % 0.3 %; Hematocrit 29 % (42-52); Hemoglobin 9.2 g/dL (14.0-18.0); Lymphocyte % 38.6 %; Mean Corpuscular HGB Conc 31 g/dL (31-36); Mean Corpuscular Hemoglobin 33 pg (27-31); Mean Corpuscular Volume 107 fL (80-94); Mean Platelet Volume 9.5 fL (7.4-10.4); Platelet Count 11 10^3/uL (150-450); Red Blood Count 2.74 10^6 /uL (4.18-5.48); Red Cell Distribution Width 17 % (10-15); White Blood Count 0.4 10^3/uL (3.5-10.8)
[2019-07-19 03:51] LABS: ALT 323 U/L (7-52); AST 872 U/L (13-39); Albumin 1.9 g/dL (3.2-5.2); Alkaline Phosphatase 48 U/L (34-104); BUN/Creatinine Ratio 13.2 (8-20); Blood Urea Nitrogen 36 mg/dL (6-24); Calcium 7.1 mg/dL (8.6-10.3); Chloride 107 mmol/L (101-111); EGFR African American 28.7 (>60); EGFR Non-African American 23.8 (>60); Glucose 85 mg/dL (70-100); Potassium 4.6 mmol/L (3.5-5.0); Sodium 136 mmol/L (135-145); Total Protein 3.9 g/dL (6.4-8.9)
[2019-07-19 03:54] LABS: Anion Gap 15 mmol/L (2-11); CO2 Carbon Dioxide 14 mmol/L (22-32)
[2019-07-19] MEDS: Chlorhexidine MOUTHWASH 0.12%* 15 ML UDC TOPICAL SCH ×5 (04:01→22:52)
[2019-07-19] MEDS ORDERED: Sodium Bicarbonate 8.4% VIAL* 10 ML VIAL IV ONE (04:13)
[2019-07-19] MEDS ORDERED: Sodium Bicarbonate 8.4% IV* 50 ML VIAL ONE (04:15)
[2019-07-19] MEDS: Pantoprazole* 80 mg IN NS 80 MG/250 ML BAG IV SCH ×2 (04:26→13:40)
[2019-07-19] MEDS ORDERED: Sodium Bicarbonate 8.4%* 50 ML SYRINGE IV ONE (04:35)
[2019-07-19] MEDS ORDERED: Sodium Bicarbonate 8.4% IV* 150 MEQ in D5W 1000 ML BAG* 1,000 ML IV SCH ×2 (04:48→14:00)
[2019-07-19] MEDS ORDERED: Vancomycin Random Level* NOTE FOLLOW UP ONE (06:00)
[2019-07-19 06:21] LABS: INR 3.33 (0.82-1.09)
[2019-07-19 06:29] LABS: ABS Lymphocytes 0.1 10^3/ul (1.0-4.8); ABS Neutrophils 0.2 10^3/ul (1.5-7.7); Eosinophil % 0.9 %; Hematocrit 27 % (42-52); Hemoglobin 8.3 g/dL (14.0-18.0); Lymphocyte % 40.4 %; Mean Corpuscular HGB Conc 31 g/dL (31-36); Mean Corpuscular Hemoglobin 34 pg (27-31); Mean Corpuscular Volume 109 fL (80-94); Platelet Count 37 10^3/uL (150-450); Red Blood Count 2.46 10^6 /uL (4.18-5.48); Red Cell Distribution Width 17 % (10-15); White Blood Count 0.3 10^3/uL (3.5-10.8)
[2019-07-19 06:34] LABS: Vancomycin Random 14.7 mcg/mL
[2019-07-19 06:36] LABS: BUN/Creatinine Ratio 11.6 (8-20); Blood Urea Nitrogen 35 mg/dL (6-24); Calcium 7.2 mg/dL (8.6-10.3); Chloride 106 mmol/L (101-111); EGFR African American 25.5 (>60); EGFR Non-African American 21.1 (>60); Glucose 62 mg/dL (70-100); Sodium 139 mmol/L (135-145)
[2019-07-19 06:38] LABS: Anion Gap 19 mmol/L (2-11); Troponin I 0.39 ng/mL (<0.04)
--- NOTE | 2019-07-19 06:59 | PN ---
Sepsis Event Evaluation Date of Evaluation: 07/19/19 Time of Evaluation: 00:10 Current Stage of Sepsis: Septic Shock Vital Signs - Last 12 Hours: Vital Signs - 12 hr Temp Pulse Resp BP Pulse Ox 07/19/19 06:15 97.3 F 95 92/47 100 07/19/19 06:00 97.3 F 93 25 96/53 98 07/19/19 05:45 97.7 F 93 98/59 98 07/19/19 05:30 97.7 F 94 104/63 95 07/19/19 05:15 97.7 F 97 102/72 94 07/19/19 05:00 97.9 F 97 29 98/68 93 07/19/19 04:45 97.9 F 98 114/74 94 07/19/19 04:30 97.9 F 101 104/73 94 07/19/19 04:15 97.9 F 97 113/68 93 07/19/19 04:00 97.9 F 93 30 108/76 93 07/19/19 03:45 97.9 F 101 123/73 93 07/19/19 03:30 98.1 F 102 110/72 94 07/19/19 03:15 98.1 F 103 118/74 91 07/19/19 03:00 101 31 94/69 92 07/19/19 02:45 98.1 F 93 120/70 92 07/19/19 02:30 98.2 F 98 100/76 93 07/19/19 02:15 98.2 F 101 120/67 93 07/19/19 02:00 98.2 F 102 28 121/65 93 07/19/19 01:45 98.4 F 101 124/77 93 07/19/19 01:30 98.4 F 101 125/78 92 07/19/19 01:10 98.4 F 100 116/77 96 07/19/19 01:05 98.4 F 99 128/70 96 07/19/19 01:00 98.6 F 98 27 126/73 97 07/19/19 00:55 98.6 F 97 118/75 98 07/19/19 00:50 98.6 F 98 121/75 98 07/19/19 00:45 98.8 F 98 115/70 96 07/19/19 00:40 98.8 F 98 113/71 94 07/19/19 00:35 98.8 F 97 106/67 95 07/19/19 00:30 98.8 F 98 113/69 94 07/19/19 00:25 98.8 F 98 108/67 94 07/19/19 00:20 98.8 F 99 102/66 94 07/19/19 00:15 99.0 F 99 113/59 95 07/19/19 00:10 99.0 F 99 116/62 93 07/19/19 00:05 99.0 F 99 115/65 93 07/19/19 00:00 99.1 F 100 28 119/66 92 07/18/19 23:55 93.0 F 102 112/69 92 07/18/19 23:50 98.2 F 101 108/60 92 07/18/19 23:45 99.1 F 101 114/62 93 07/18/19 23:40 99.3 F 101 115/62 94 07/18/19 23:38 99.3 F 102 96 07/18/19 23:35 99.3 F 102 106/62 97 07/18/19 23:30 99.5 F 102 112/53 96 07/18/19 23:28 29 07/18/19 23:25 99.5 F 103 105/59 94 07/18/19 23:20 99.7 F 100 96/56 94 07/18/19 23:15 99.7 F 100 102/53 95 07/18/19 23:10 99.7 F 106 110/50 95 07/18/19 23:05 99.9 F 107 104/51 88 07/18/19 23:00 99.9 F 107 29 107/58 89 07/18/19 22:55 100.0 F 110 98/47 91 07/18/19 22:50 100.0 F 103 92/54 89 07/18/19 22:45 100.0 F 109 77/47 91 07/18/19 22:35 100.0 F 107 97/57 94 07/18/19 22:30 99.9 F 108 98/61 93 07/18/19 22:25 99.5 F 108 89/61 93 07/18/19 22:20 100.2 F 106 89/52 95 07/18/19 22:15 100.0 F 104 88/49 95 07/18/19 22:10 100.4 F 104 80/45 93 07/18/19 22:05 100.4 F 104 89/54 93 07/18/19 22:00 100.2 F 103 21 80/51 92 07/18/19 21:55 99.9 F 102 87/56 91 07/18/19 21:50 100.8 F 99 71/46 93 07/18/19 21:47 100.9 F 93 30 65/42 92 07/18/19 21:45 100.8 F 96 68/45 90 07/18/19 21:40 100.9 F 92 65/42 92 07/18/19 21:28 100.8 F 95 76/42 93 07/18/19 21:23 100.9 F 94 65/42 93 07/18/19 21:18 101.1 F 94 74/42 93 07/18/19 21:13 101.1 F 94 72/43 92 07/18/19 21:08 101.1 F 94 79/41 92 07/18/19 21:03 101.1 F 96 75/45 97 07/18/19 21:02 101.1 F 96 89 07/18/19 20:52 100.9 F 99 24 71/46 90 07/18/19 20:35 101.7 F 96 90/45 86 07/18/19 20:30 101.8 F 98 100/57 86 07/18/19 20:25 102.0 F 99 96/53 87 07/18/19 20:20 102.2 F 99 109/62 88 07/18/19 20:15 102.6 F 99 103/54 89 07/18/19 20:10 102.9 F 96 117/52 89 07/18/19 20:05 103.5 F 85 110/48 87 07/18/19 20:01 104.2 F 70 87 07/18/19 20:00 104.4 F 67 83/44 86 07/18/19 19:55 104.7 F 76 10 61/35 86 07/18/19 19:51 104.9 F 61 14 51/31 93 07/18/19 19:45 104.9 F 59 12 43/27 100 07/18/19 19:43 104.7 F 13 43/28 07/18/19 19:41 104.9 F 16 07/18/19 19:35 104.7 F 77 18 49/29 100 07/18/19 19:30 104.7 F 22 55/36 07/18/19 19:26 104.5 F 31 07/18/19 19:05 100.9 F 27 164/123 07/18/19 19:00 35 Lactic Acid: 07/18/19 07/18/19 07/19/19 18:44 22:30 03:23 Lactic Acid 14.9 H* 11.8 H* 12.1 H* - Cardiopulmonary Exam Capillary Refill: Delayed Respiratory: Symmetrical Chest Expansion and Respiratory Effort, Clear to Auscultation Cardiovascular: NL Sounds; No Murmurs; No JVD - Peripheral Pulse Exam Radial Pulses: Bilateral Normal Pedal Pulses: Bilateral Normal - Skin Exam Skin Exam: Mottling - Rey Coma Scale Best Eye Response: 1 - None Best Motor Response: 4 - Withdraws Best Verbal Response: 1 - Intubated Coma Scale Total: 6.0 Assess/Plan/Problems-Billing Assessment:
[2019-07-19] MEDS ORDERED: Calcium Gluconate INJ* 1 GM in NS 0.9% 50 ML* 50 ML IVPB ONE ×2 (07:30→20:15)
[2019-07-19] MEDS ORDERED: Cefepime 2 GM in Dextrose(*) 2 GM/50 ML BAG IV SCH (08:00)
[2019-07-19] MEDS ORDERED: Cefepime 1 GM in Dextrose(*) 1 GM/50 ML BAG IV SCH (08:00)
[2019-07-19] MEDS ORDERED: Perflutren Lipid Microsphere* 3 ML VIAL ONE (08:06)
[2019-07-19] MEDS ORDERED: Vancomycin per Pharmacy* NOTE FOLLOW UP PRN (08:25)
[2019-07-19] MEDS ORDERED: Vancomycin(*) 1,000 MG in NS 0.9% 250 ML* 250 ML IV ONE (09:00)
--- NOTE | 2019-07-19 09:17 | ECHO ---
*[facility]* [place] [address] Fax #: [phone] Transthoracic Echocardiogram Patient: Tmo Fierro : 1955 Study Date: 07/19/2019 Age: 64 Gender: M HR: 92 bpm Height: 72 in /182.9 cm BSA: 2.19 m^2 Weight: 213.6 lb /97.1 kg BMI: 29 kg/m^2 *[employer] Helper: Christelle Hess [facility] *Referring Physician: * Ben Kaplan *Reading Physician: * Santana Barfield MD Indications: SOB. Abnormal EKG. History: Hep C, cirrhosis. B-cell lymphoma with chemo rx. Sedated, intubated and mechanically ventilated . Risk factors: Current tobacco use. Hypertension. Conclusions Summary: - Left ventricle: The cavity size is normal. Wall thickness is mildly increased. Systolic function is at the lower limits of normal. The estimated ejection fraction is 50-55%. There are no obvious segmental wall motion abnormalities noted on study that was technically difficult despite imaging enhancement use. - Right ventricle: The cavity size is mildly dilated. Systolic function is mildly reduced. - Left atrium: The atrium is normal in size. - No functionally significant valvular abnormlaties noted. - Unable to estimate PASP Recommendations: None prior for comparison at time of interpretation. Study data: Transthoracic echocardiogram. Procedure: Transthoracic echocardiography was performed. Image quality was suboptimal. The study was technically limited due to restricted patient mobility, surgical dressings, Patient on ventilator, and Smoking history. Intravenous Definity , 6 mlswas administered. Image enhancement administered by Complete 2D, spectral Doppler, and color flow Doppler. Location: ICU Patient room number: 6. Rhythm: Normal sinus rhythm. Findings Left ventricle: The cavity size is normal. Wall thickness is mildly increased. Systolic function is at the lower limits of normal. The estimated ejection fraction is 50-55%. There are no obvious segmental wall motion abnormalities noted on study that was technically difficult despite imaging enhancement use. Left ventricular diastolic function parameters are indeterminate. Right ventricle: Well visualized. The cavity size is mildly dilated. Systolic function is mildly reduced. Left atrium: Well visualized. The atrium is normal in size. Right atrium: Well visualized. The atrium is normal in size. Atrial septum: Not well visualized. Mitral valve: Well visualized. The leaflets are mildly thickened. No echocardiographic evidence for prolapse. There is no evidence of stenosis. There is trace regurgitation. Aortic valve: Not well visualized. The valve appears to open adequately without any significant regurgitation noted. Tricuspid valve: Well visualized. The leaflets are normal thickness. There is no evidence of stenosis. There is trace regurgitation. Pulmonic valve: Not well visualized. Aorta: The aorta is poorly visualized. Pericardium: There is no significant pericardial effusion. Pulmonary arteries: Not well visualized. Pulmonary veins: Visualized but unable to estimate pressure due to mechanical ventilation. Measurements Left ventricle Value Ref Right atrium continued Value Ref CAMI, LAX (L) 3.7 cm 4.2 - SI dim/bsa, ES, 2.4 cm/m^2 1.8 - 5.8 A4C 3.0 ESD, LAX 3.0 cm 2.5 - Estimated RAP 8 mm Hg -------- 4.0 FS, LAX (L) 18 % Aortic valve Value Ref PW, ED, LAX (H) 1.4 cm 0.6 - Carmen diam, ED 1.8 cm -------- 1.0 Peak v, S 1.25 m/sec -------- FS (L) 18 % VTI, S 19.4 cm -------- PW, ED (H) 1.4 cm 0.6 - Mean grad, S 3.0 mm Hg -------- 1.0 Peak grad, S 6.0 mm Hg -------- PW/ID, ED 0.39 -------- LVOT/AV, VTI ratio 1 -------- LVOT Value Ref Mitral valve Value Ref Peak peggy, S 1.02 m/sec -------- Peak E 0.57 m/sec -------- VTI, S 19.4 cm -------- Peak A 0.45 m/sec -------- Mean grad, S 2 mm Hg -------- Decel time 81 ms -------- Peak E/A ratio 1.3 -------- Ventricular septum Value Ref IVS, ED (H) 1.3 cm 0.6 - Pulmonic valve Value Ref 1.0 Peak v, S 0.99 m/sec -------- Peak grad, S 4.0 mm Hg -------- Right ventricle Value Ref CAMI, LAX 3.5 cm -------- Aortic root Value Ref CAMI minor ax, A4C 3.0 cm 1.9 - Root diam 3.2 cm <4.3 mid 3.5 Root max diam, ED 3.2 cm <4.3 Left atrium Value Ref Ascending aorta Value Ref ML dim, A4C 4.1 cm -------- AAo AP diam, S 2.8 cm -------- SI dim, A4C 5.5 cm -------- Right atrium Value Ref SI dim, ES 5.3 cm 3.4 - 5.3 ML dim, ES, A4C 4.2 cm 2.6 - 4.4 SI dim, ES, A4C 5.3 cm 3.4 - 5.3 Legend: (L) and (H) mary jane values outside specified reference range. Prepared and electronically signed by Santana Barfield MD 07/19/2019 09:16
--- NOTE | 2019-07-19 10:25 | PN ---
Progress Note - Progress Note Date of Service: 07/19/19 SOAP: Subjective: []Stage III DLBCL receiving curative intent chemotherapy, s/p C5 R-CHOP, day 1 07/12/19 without CGSF as age <65 and no co-morbidities. Presented to the ER yesterday hypoxic and combative. Intubated and admitted to the ICU for severe sepsis. Per ex (daughter's, who lives in [place], mother) Mr. Fierro had been feeling poorly for several days with increased fatigue and a temp. at home. She does not live with him and has only been peripherally involved in his care as current partner and her do not get along. Partner left following admission of pt. Pt.'s siblings both present with ex. this AM for family meeting with Supervisor Welding Equipment Repairer, Dr. Schwab. Medications: Chlorhexidine Gluconate (Peridex Mouth Wash 0.12%*) 15 ml TOPICAL Q4H TYRA Last Admin: 07/19/19 04:01 Dose: 15 ml Propofol (Diprivan*) 100 mls @ 0 mls/hr IV .PER PROTOCOL TYRA; Protocol Last Admin: 07/18/19 21:47 Dose: 5.9 mls/hr Norepinephrine Bitartrate (Levophed 16 Mcg/Ml Premix*) 4,000 mcg in 250 mls @ 0 mls/hr IV .PER PROTOCOL TYRA; Protocol Last Admin: 07/19/19 02:02 Dose: 75 mls/hr Vasopressin 100 units/ (Dextrose) 250 mls @ 0 mls/hr IV Q24H TYRA; Protocol Last Admin: 07/18/19 23:22 Dose: 6 mls/hr Fentanyl Citrate (Fentanyl Infusion Bag 50 Mcg/Ml 50 Ml) 2,500 mcg in 50 mls @ 0 mls/hr IV Q72H TYRA; Protocol Last Admin: 07/18/19 23:28 Dose: 1 mls/hr Cefepime HCl (Maxipime 2 Gm In Dextrose Duplex (*)) 2 gm in 50 mls @ 100 mls/ hr IV Q12H TYRA Last Admin: 07/19/19 08:42 Dose: 100 mls/hr Pantoprazole Sodium (Protonix Iv Bag*) 80 mg in 250 mls @ 25 mls/hr IV Q10H TYRA Last Admin: 07/19/19 04:26 Dose: 25 mls/hr Sodium Bicarbonate 150 meq/ (Dextrose) 1,150 mls @ 104.545 mls/hr IV PER RATE TYRA Last Admin: 07/19/19 04:50 Dose: 104.545 mls/hr Objective: [] Vital Signs Temp Pulse Resp BP Pulse Ox 97.7 F 98 25 109/67 98 07/19/19 07:15 07/19/19 07:15 07/19/19 06:00 07/19/19 07:15 07/19/19 07:15 Sedated Intubated with even resp., chest wall elevation even, no crackles, slight wheeze HRR, S1S2 distant heart sounds, SR on tele +BS, abd. round and distended Laboratory Results - last 24 hr 07/18/19 07/18/19 07/18/19 18:44 18:44 18:44 WBC 0.4 L RBC 3.24 L Hgb 10.9 L Hct 33 L MCV 101 H MCH 34 H MCHC 33 RDW 16 H Plt Count 34 L MPV 10.6 H Neut % (Auto) 71.6 Lymph % (Auto) 23.5 [place] % (Auto) 1.0 Eos % (Auto) 0.0 Baso % (Auto) 3.9 Absolute Neuts (auto) 0.3 L* Absolute Lymphs (auto) 0.1 L Absolute Monos (auto) 0.0 Absolute Eos (auto) 0.0 Absolute Basos (auto) 0.0 Absolute Nucleated RBC 0.0 Immature Gran % 13.0 H Neutrophils % 63.0 Band Neutrophils % 13.0 H Lymphocytes % 23.0 Monocytes % 1.0 Nucleated RBC % 0.0 Normal RBC Morphology Not Reportable Hypochromasia 1+ Microcytosis 1+ Macrocytosis 1+ INR (Anticoag Therapy) Fibrinogen D-Dimer, Quantitative Patient Temperature ABG pH ABG pH (Temp Correct) ABG pCO2 ABG pCO2 (Temp Corrct ABG pO2 ABG pO2 (Temp Correct ABG HCO3 ABG O2 Saturation ABG Base Excess Respiration Rate O2 Delivery Device Ventilator Type Vent Mode FiO2 Inspiratory Time PEEP Pressure Support Pressure Control EPAP IPAP BiPAP Sodium 135 Potassium 3.7 Chloride 98 L Carbon Dioxide 18 L Anion Gap 19 H BUN 38 H Creatinine 2.10 H Est GFR ( Amer) 38.9 Est GFR (Non-Af Amer) 32.2 BUN/Creatinine Ratio 18.1 Glucose 132 H POC Glucose (mg/dL) Lactic Acid 14.9 H* Uric Acid 4.3 L Calcium 8.4 L Ionized Calcium Magnesium 1.7 L Total Bilirubin 2.80 H AST 47 H ALT 46 Alkaline Phosphatase 59 Lactate Dehydrogenase 229 Troponin I 0.20 H* C-Reactive Protein 129.92 H B-Natriuretic Peptide Total Protein 4.9 L Albumin 2.4 L Globulin 2.5 Albumin/Globulin Ratio 1.0 Urine Color Urine Appearance Urine pH Ur Specific Philo Urine Protein Urine Ketones Urine Blood Urine Nitrate Urine Bilirubin Urine Urobilinogen Ur Leukocyte Esterase Urine WBC (Auto) Urine RBC (Auto) Urine Bacteria Hyaline Casts Ur Creatinine Concen U Sodium Concentration Urine Glucose Random Vancomycin Blood Type Antibody Screen 07/18/19 07/18/19 07/18/19 18:44 18:44 18:44 WBC RBC Hgb Hct MCV MCH MCHC RDW Plt Count MPV Neut % (Auto) Lymph % (Auto) [place] % (Auto) Eos % (Auto) Baso % (Auto) Absolute Neuts (auto) Absolute Lymphs (auto) Absolute Monos (auto) Absolute Eos (auto) Absolute Basos (auto) Absolute Nucleated RBC Immature Gran % Neutrophils % Band Neutrophils % Lymphocytes % Monocytes % Nucleated RBC % Normal RBC Morphology Hypochromasia Microcytosis Macrocytosis INR (Anticoag Therapy) 2.04 H Fibrinogen > 230.1 D-Dimer, Quantitative > 1050 H Patient Temperature Not Reportable ABG pH 7.34 L ABG pH (Temp Correct) Not Reportable ABG pCO2 26 L ABG pCO2 (Temp Corrct Not Reportable ABG pO2 177 H ABG pO2 (Temp Correct Not Reportable ABG HCO3 17.1 L ABG O2 Saturation 99.9 H ABG Base Excess -10.1 L Respiration Rate Not Reportable O2 Delivery Device Nrb Ventilator Type Not Reportable Vent Mode Not Reportable FiO2 Not Reportable Inspiratory Time Not Reportable PEEP Not Reportable Pressure Support Not Reportable Pressure Control Not Reportable EPAP Not Reportable IPAP Not Reportable BiPAP Not Reportable Sodium Potassium Chloride Carbon Dioxide Anion Gap BUN Creatinine Est GFR ( Amer) Est GFR (Non-Af Amer) BUN/Creatinine Ratio Glucose POC Glucose (mg/dL) Lactic Acid Uric Acid Calcium Ionized Calcium Magnesium Total Bilirubin AST ALT Alkaline Phosphatase Lactate Dehydrogenase Troponin I C-Reactive Protein B-Natriuretic Peptide 353 H Total Protein Albumin Globulin Albumin/Globulin Ratio Urine Color Urine Appearance Urine pH Ur Specific Philo Urine Protein Urine Ketones Urine Blood Urine Nitrate Urine Bilirubin Urine Urobilinogen Ur Leukocyte Esterase Urine WBC (Auto) Urine RBC (Auto) Urine Bacteria Hyaline Casts Ur Creatinine Concen U Sodium Concentration Urine Glucose Random Vancomycin Blood Type Antibody Screen 07/18/19 07/18/19 07/18/19 18:44 19:05 19:05 WBC RBC Hgb Hct MCV MCH MCHC RDW Plt Count MPV Neut % (Auto) Lymph % (Auto) [place] % (Auto) Eos % (Auto) Baso % (Auto) Absolute Neuts (auto) Absolute Lymphs (auto) Absolute Monos (auto) Absolute Eos (auto) Absolute Basos (auto) Absolute Nucleated RBC Immature Gran % Neutrophils % Band Neutrophils % Lymphocytes % Monocytes % Nucleated RBC % Normal RBC Morphology Hypochromasia Microcytosis Macrocytosis INR (Anticoag Therapy) Fibrinogen D-Dimer, Quantitative Patient Temperature ABG pH ABG pH (Temp Correct) ABG pCO2 ABG pCO2 (Temp Corrct ABG pO2 ABG pO2 (Temp Correct ABG HCO3 ABG O2 Saturation ABG Base Excess Respiration Rate O2 Delivery Device Ventilator Type Vent Mode FiO2 Inspiratory Time PEEP Pressure Support Pressure Control EPAP IPAP BiPAP Sodium Potassium Chloride Carbon Dioxide Anion Gap BUN Creatinine Est GFR ( Amer) Est GFR (Non-Af Amer) BUN/Creatinine Ratio Glucose POC Glucose (mg/dL) Lactic Acid Uric Acid Calcium Ionized Calcium Magnesium Total Bilirubin AST ALT Alkaline Phosphatase Lactate Dehydrogenase Troponin I C-Reactive Protein B-Natriuretic Peptide Total Protein Albumin Globulin Albumin/Globulin Ratio Urine Color Margarita Urine Appearance Cloudy Urine pH 5.0 Ur Specific Philo 1.024 Urine Protein 1+(30 mg/dl) A Urine Ketones Trace A Urine Blood 1+ A Urine Nitrate Negative Urine Bilirubin Negative Urine Urobilinogen Positive A Ur Leukocyte Esterase Negative Urine WBC (Auto) 2+(11-20/hpf) A Urine RBC (Auto) Absent Urine Bacteria Absent Hyaline Casts Present A Ur Creatinine Concen 293.02 U Sodium Concentration < 18 Urine Glucose 1+(50 mg/dl) A Random Vancomycin Blood Type O Positive Antibody Screen 07/18/19 07/18/19 07/18/19 22:30 22:30 22:30 WBC 0.4 L RBC 2.61 L Hgb 8.8 L Hct 28 L MCV 106 H MCH 34 H MCHC 32 RDW 17 H Plt Count 17 L* MPV 9.3 Neut % (Auto) 68.3 Lymph % (Auto) 28.9 [place] % (Auto) 0.7 Eos % (Auto) 0.4 Baso % (Auto) 1.7 Absolute Neuts (auto) 0.3 L* Absolute Lymphs (auto) 0.1 L Absolute Monos (auto) 0.0 Absolute Eos (auto) 0.0 Absolute Basos (auto) 0.0 Absolute Nucleated RBC 0.0 Immature Gran % Neutrophils % Band Neutrophils % Lymphocytes % Monocytes % Nucleated RBC % 0.2 Normal RBC Morphology Hypochromasia Microcytosis Macrocytosis INR (Anticoag Therapy) Fibrinogen D-Dimer, Quantitative Patient Temperature ABG pH ABG pH (Temp Correct) ABG pCO2 ABG pCO2 (Temp Corrct ABG pO2 ABG pO2 (Temp Correct ABG HCO3 ABG O2 Saturation ABG Base Excess Respiration Rate O2 Delivery Device Ventilator Type Vent Mode FiO2 Inspiratory Time PEEP Pressure Support Pressure Control EPAP IPAP BiPAP Sodium 138 Potassium 4.2 Chloride 107 Carbon Dioxide 17 L Anion Gap 14 H BUN 36 H Creatinine 2.45 H Est GFR ( Amer) 32.6 Est GFR (Non-Af Amer) 26.9 BUN/Creatinine Ratio 14.7 Glucose 24 L* POC Glucose (mg/dL) Lactic Acid Uric Acid Calcium 7.4 L Ionized Calcium Magnesium Total Bilirubin AST ALT Alkaline Phosphatase Lactate Dehydrogenase Troponin I 0.25 H* C-Reactive Protein B-Natriuretic Peptide Total Protein Albumin Globulin Albumin/Globulin Ratio Urine Color Urine Appearance Urine pH Ur Specific Philo Urine Protein Urine Ketones Urine Blood Urine Nitrate Urine Bilirubin Urine Urobilinogen Ur Leukocyte Esterase Urine WBC (Auto) Urine RBC (Auto) Urine Bacteria Hyaline Casts Ur Creatinine Concen U Sodium Concentration Urine Glucose Random Vancomycin Blood Type O Positive Antibody Screen Negative 07/18/19 07/18/19 07/18/19 22:30 23:10 23:32 WBC RBC Hgb Hct MCV MCH MCHC RDW Plt Count MPV Neut % (Auto) Lymph % (Auto) [place] % (Auto) Eos % (Auto) Baso % (Auto) Absolute Neuts (auto) Absolute Lymphs (auto) Absolute Monos (auto) Absolute Eos (auto) Absolute Basos (auto) Absolute Nucleated RBC Immature Gran % Neutrophils % Band Neutrophils % Lymphocytes % Monocytes % Nucleated RBC % Normal RBC Morphology Hypochromasia Microcytosis Macrocytosis INR (Anticoag Therapy) Fibrinogen D-Dimer, Quantitative Patient Temperature Not Reportable ABG pH < 7.00 L* ABG pH (Temp Correct) Not Reportable ABG pCO2 65 H ABG pCO2 (Temp Corrct Not Reportable ABG pO2 55 L* ABG pO2 (Temp Correct Not Reportable ABG HCO3 TNP ABG O2 Saturation 78.6 L ABG Base Excess TNP Respiration Rate 12 O2 Delivery Device vent Ventilator Type Vent Mode pcv FiO2 100 Inspiratory Time 1.0 PEEP 8 Pressure Support Pressure Control 28 EPAP Not Reportable IPAP Not Reportable BiPAP Not Reportable Sodium Potassium Chloride Carbon Dioxide Anion Gap BUN Creatinine Est GFR ( Amer) Est GFR (Non-Af Amer) BUN/Creatinine Ratio Glucose POC Glucose (mg/dL) 124 H Lactic Acid 11.8 H* Uric Acid Calcium Ionized Calcium Magnesium Total Bilirubin AST ALT Alkaline Phosphatase Lactate Dehydrogenase Troponin I C-Reactive Protein B-Natriuretic Peptide Total Protein Albumin Globulin Albumin/Globulin Ratio Urine Color Urine Appearance Urine pH Ur Specific Philo Urine Protein Urine Ketones Urine Blood Urine Nitrate Urine Bilirubin Urine Urobilinogen Ur Leukocyte Esterase Urine WBC (Auto) Urine RBC (Auto) Urine Bacteria Hyaline Casts Ur Creatinine Concen U Sodium Concentration Urine Glucose Random Vancomycin Blood Type Antibody Screen 07/19/19 07/19/19 07/19/19 00:25 00:37 02:11 WBC RBC Hgb Hct MCV MCH MCHC RDW Plt Count MPV Neut % (Auto) Lymph % (Auto) [place] % (Auto) Eos % (Auto) Baso % (Auto) Absolute Neuts (auto) Absolute Lymphs (auto) Absolute Monos (auto) Absolute Eos (auto) Absolute Basos (auto) Absolute Nucleated RBC Immature Gran % Neutrophils % Band Neutrophils % Lymphocytes % Monocytes % Nucleated RBC % Normal RBC Morphology Hypochromasia Microcytosis Macrocytosis INR (Anticoag Therapy) Fibrinogen D-Dimer, Quantitative Patient Temperature Not Reportable ABG pH < 7.00 L* ABG pH (Temp Correct) Not Reportable ABG pCO2 66 H ABG pCO2 (Temp Corrct Not Reportable ABG pO2 66 L ABG pO2 (Temp Correct Not Reportable ABG HCO3 TNP ABG O2 Saturation 89.4 L ABG Base Excess TNP Respiration Rate 16 O2 Delivery Device vent Ventilator Type 500 Vent Mode cmv FiO2 100 Inspiratory Time 0.75 PEEP 8 Pressure Support Not Reportable Pressure Control Not Reportable EPAP Not Reportable IPAP Not Reportable BiPAP Not Reportable Sodium Potassium Chloride Carbon Dioxide Anion Gap BUN Creatinine Est GFR ( Amer) Est GFR (Non-Af Amer) BUN/Creatinine Ratio Glucose POC Glucose (mg/dL) 64 L 129 H Lactic Acid Uric Acid Calcium Ionized Calcium Magnesium Total Bilirubin AST ALT Alkaline Phosphatase Lactate Dehydrogenase Troponin I C-Reactive Protein B-Natriuretic Peptide Total Protein Albumin Globulin Albumin/Globulin Ratio Urine Color Urine Appearance Urine pH Ur Specific [place] Urine Protein Urine Ketones Urine Blood Urine Nitrate Urine Bilirubin Urine Urobilinogen Ur Leukocyte Esterase Urine WBC (Auto) Urine RBC (Auto) Urine Bacteria Hyaline Casts Ur Creatinine Concen U Sodium Concentration Urine Glucose Random Vancomycin Blood Type Antibody Screen 07/19/19 07/19/19 07/19/19 02:50 03:23 03:23 WBC 0.4 L RBC 2.74 L Hgb 9.2 L Hct 29 L MCV 107 H MCH 33 H MCHC 31 RDW 17 H Plt Count 11 L* MPV 9.5 Neut % (Auto) 37.9 Lymph % (Auto) 38.6 [place] % (Auto) 22.5 Eos % (Auto) 0.3 Baso % (Auto) 0.7 Absolute Neuts (auto) 0.1 L* Absolute Lymphs (auto) 0.1 L Absolute Monos (auto) 0.1 Absolute Eos (auto) 0.0 Absolute Basos (auto) 0.0 Absolute Nucleated RBC TNP Immature Gran % Neutrophils % Band Neutrophils % Lymphocytes % Monocytes % Nucleated RBC % TNP Normal RBC Morphology Hypochromasia Microcytosis Macrocytosis INR (Anticoag Therapy) Fibrinogen D-Dimer, Quantitative Patient Temperature Not Reportable ABG pH 7.01 L* ABG pH (Temp Correct) Not Reportable ABG pCO2 52 H ABG pCO2 (Temp Corrct Not Reportable ABG pO2 55 L* ABG pO2 (Temp Correct Not Reportable ABG HCO3 10.4 L ABG O2 Saturation 83.0 L ABG Base Excess -18.0 L Respiration Rate 20 O2 Delivery Device vent Ventilator Type 600 Vent Mode cmv FiO2 100 Inspiratory Time 0.75 PEEP 10 Pressure Support Not Reportable Pressure Control Not Reportable EPAP Not Reportable IPAP Not Reportable BiPAP Not Reportable Sodium 136 Potassium 4.6 Chloride 107 Carbon Dioxide 14 L* Anion Gap 15 H BUN 36 H Creatinine 2.73 H Est GFR ( Amer) 28.7 Est GFR (Non-Af Amer) 23.8 BUN/Creatinine Ratio 13.2 Glucose 85 POC Glucose (mg/dL) Lactic Acid Uric Acid Calcium 7.1 L Ionized Calcium Magnesium Total Bilirubin 3.20 H AST 872 H ALT 323 H Alkaline Phosphatase 48 Lactate Dehydrogenase Troponin I 0.31 H* C-Reactive Protein B-Natriuretic Peptide Total Protein 3.9 L Albumin 1.9 L Globulin 2.0 Albumin/Globulin Ratio 1.0 Urine Color Urine Appearance Urine pH Ur Specific [place] Urine Protein Urine Ketones Urine Blood Urine Nitrate Urine Bilirubin Urine Urobilinogen Ur Leukocyte Esterase Urine WBC (Auto) Urine RBC (Auto) Urine Bacteria Hyaline Casts Ur Creatinine Concen U Sodium Concentration Urine Glucose Random Vancomycin Blood Type Antibody Screen 07/19/19 07/19/19 07/19/19 03:23 04:00 06:00 WBC RBC Hgb Hct MCV MCH MCHC RDW Plt Count MPV Neut % (Auto) Lymph % (Auto) [place] % (Auto) Eos % (Auto) Baso % (Auto) Absolute Neuts (auto) Absolute Lymphs (auto) Absolute Monos (auto) Absolute Eos (auto) Absolute Basos (auto) Absolute Nucleated RBC Immature Gran % Neutrophils % Band Neutrophils % Lymphocytes % Monocytes % Nucleated RBC % Normal RBC Morphology Hypochromasia Microcytosis Macrocytosis INR (Anticoag Therapy) Fibrinogen D-Dimer, Quantitative Patient Temperature ABG pH ABG pH (Temp Correct) ABG pCO2 ABG pCO2 (Temp Corrct ABG pO2 ABG pO2 (Temp Correct ABG HCO3 ABG O2 Saturation ABG Base Excess Respiration Rate O2 Delivery Device Ventilator Type Vent Mode FiO2 Inspiratory Time PEEP Pressure Support Pressure Control EPAP IPAP BiPAP Sodium 139 Potassium 5.0 Chloride 106 Carbon Dioxide 14 L* Anion Gap 19 H BUN 35 H Creatinine 3.03 H Est GFR ( Amer) 25.5 Est GFR (Non-Af Amer) 21.1 BUN/Creatinine Ratio 11.6 Glucose 62 L POC Glucose (mg/dL) 84 Lactic Acid 12.1 H* Uric Acid Calcium 7.2 L Ionized Calcium Magnesium Total Bilirubin AST ALT Alkaline Phosphatase Lactate Dehydrogenase Troponin I 0.39 H* C-Reactive Protein B-Natriuretic Peptide Total Protein Albumin Globulin Albumin/Globulin Ratio Urine Color Urine Appearance Urine pH Ur Specific [place] Urine Protein Urine Ketones Urine Blood Urine Nitrate Urine Bilirubin Urine Urobilinogen Ur Leukocyte Esterase Urine WBC (Auto) Urine RBC (Auto) Urine Bacteria Hyaline Casts Ur Creatinine Concen U Sodium Concentration Urine Glucose Random Vancomycin 14.7 Blood Type Antibody Screen 07/19/19 07/19/19 07/19/19 06:00 06:00 06:00 WBC 0.3 L RBC 2.46 L Hgb 8.3 L Hct 27 L MCV 109 H MCH 34 H MCHC 31 RDW 17 H Plt Count 37 L D MPV 8.0 Neut % (Auto) 55.2 Lymph % (Auto) 40.4 [place] % (Auto) 3.0 Eos % (Auto) 0.9 Baso % (Auto) 0.5 Absolute Neuts (auto) 0.2 L* Absolute Lymphs (auto) 0.1 L Absolute Monos (auto) 0.0 Absolute Eos (auto) 0.0 Absolute Basos (auto) 0.0 Absolute Nucleated RBC TNP Immature Gran % Neutrophils % Band Neutrophils % Lymphocytes % Monocytes % Nucleated RBC % TNP Normal RBC Morphology Hypochromasia Microcytosis Macrocytosis INR (Anticoag Therapy) 3.33 H Fibrinogen D-Dimer, Quantitative Patient Temperature ABG pH ABG pH (Temp Correct) ABG pCO2 ABG pCO2 (Temp Corrct ABG pO2 ABG pO2 (Temp Correct ABG HCO3 ABG O2 Saturation ABG Base Excess Respiration Rate O2 Delivery Device Ventilator Type Vent Mode FiO2 Inspiratory Time PEEP Pressure Support Pressure Control EPAP IPAP BiPAP Sodium Potassium Chloride Carbon Dioxide Anion Gap BUN Creatinine Est GFR ( Amer) Est GFR (Non-Af Amer) BUN/Creatinine Ratio Glucose POC Glucose (mg/dL) Lactic Acid Uric Acid Calcium Ionized Calcium 0.96 L Magnesium Total Bilirubin AST ALT Alkaline Phosphatase Lactate Dehydrogenase Troponin I C-Reactive Protein B-Natriuretic Peptide Total Protein Albumin Globulin Albumin/Globulin Ratio Urine Color Urine Appearance Urine pH Ur Specific [place] Urine Protein Urine Ketones Urine Blood Urine Nitrate Urine Bilirubin Urine Urobilinogen Ur Leukocyte Esterase Urine WBC (Auto) Urine RBC (Auto) Urine Bacteria Hyaline Casts Ur Creatinine Concen U Sodium Concentration Urine Glucose Random Vancomycin Blood Type Antibody Screen 07/19/19 07/19/19 08:05 08:15 WBC RBC Hgb Hct MCV MCH MCHC RDW Plt Count MPV Neut % (Auto) Lymph % (Auto) [place] % (Auto) Eos % (Auto) Baso % (Auto) Absolute Neuts (auto) Absolute Lymphs (auto) Absolute Monos (auto) Absolute Eos (auto) Absolute Basos (auto) Absolute Nucleated RBC Immature Gran % Neutrophils % Band Neutrophils % Lymphocytes % Monocytes % Nucleated RBC % Normal RBC Morphology Hypochromasia Microcytosis Macrocytosis INR (Anticoag Therapy) Fibrinogen D-Dimer, Quantitative Patient Temperature 36.4 ABG pH < 7.00 L* ABG pH (Temp Correct) Not Reportable ABG pCO2 58 H ABG pCO2 (Temp Corrct Not Reportable ABG pO2 62 L ABG pO2 (Temp Correct Not Reportable ABG HCO3 TNP ABG O2 Saturation 91.9 L ABG Base Excess TNP Respiration Rate 24 O2 Delivery Device vent Ventilator Type 600 Vent Mode Cmv FiO2 100 Inspiratory Time .75 PEEP 15 Pressure Support Not Reportable Pressure Control Not Reportable EPAP Not Reportable IPAP Not Reportable BiPAP Not Reportable Sodium Potassium Chloride Carbon Dioxide Anion Gap BUN Creatinine Est GFR ( Amer) Est GFR (Non-Af Amer) BUN/Creatinine Ratio Glucose POC Glucose (mg/dL) 121 H Lactic Acid Uric Acid Calcium Ionized Calcium Magnesium Total Bilirubin AST ALT Alkaline Phosphatase Lactate Dehydrogenase Troponin I C-Reactive Protein B-Natriuretic Peptide Total Protein Albumin Globulin Albumin/Globulin Ratio Urine Color Urine Appearance Urine pH Ur Specific [place] Urine Protein Urine Ketones Urine Blood Urine Nitrate Urine Bilirubin Urine Urobilinogen Ur Leukocyte Esterase Urine WBC (Auto) Urine RBC (Auto) Urine Bacteria Hyaline Casts Ur Creatinine Concen U Sodium Concentration Urine Glucose Random Vancomycin Blood Type Antibody Screen Microbiology 07/18/19 18:48 Aerobic Blood Culture - Preliminary Blood Venous Escherichia Coli Anaerobic Blood Culture - Preliminary 07/19/19 02:00 Gram Stain - Final Sputum 07/18/19 19:24 Aerobic Blood Culture - Preliminary Blood Venous Anaerobic Blood Culture - Preliminary 07/19/19 02:40 Gastric Occult Blood - Final Gastric Fluid 07/18/19 19:05 Legionella Urinary Antigen - Final Urine Negative Legionella Antigen Streptococcus pneumoniae Ag Screen - Final Negative S. pneumo Antigen 07/18/19 21:50 Nasal Screen MRSA (PCR) - Final Nasal Mrsa Not Detected Assessment: []64 yo male with stage III DLBCL s/p C5 R-CHOP, day 8 today, admitted with septic shock likely secondary to E.Coli bacteremia now intubated on pressors. Family currently wants to be aggressive with care which is very appropriate as his prognosis from cancer is very good and he has no other major co-morbidities , however morbidity from sepsis currently his most pressing issue and unfortunately he may not survive this insult. Case reviewed with attending, Dr. Calderon, and agronomy location manager, Dr. Schwab. Plan: []Management per Supervisor Welding Equipment Repairer - recommend ID consult, question coverage for Pseudomonas with immunosuppression and current renal function - consult nephrology, family wants to pursue dialysis - recommend adding Neupogen 480 mcg subq daily for neutropenia in setting of sepsis Full Code
[2019-07-19] MEDS ORDERED: FILGRASTIM-SNDZ* 480 MCG/0.8 ML SYRINGE SUBCUT SCH (11:00)
[2019-07-19 11:16] LABS: Albumin 1.9 g/dL (3.2-5.2); BUN/Creatinine Ratio 10.1 (8-20); Calcium 7.4 mg/dL (8.6-10.3); EGFR African American 21.9 (>60); EGFR Non-African American 18.1 (>60); Globulin 1.9 g/dL (2-4); Total Protein 3.8 g/dL (6.4-8.9)
--- NOTE | 2019-07-19 11:16 | OP ---
Operative Report - Blank - Operative Report Date of Operation: 07/19/19 Note: HD Right Femoral Line A time-out was completed verifying correct patient, procedure, and site positioning. Family consented for procedure. The patients right Femoral area was prepped and draped in sterile fashion. Lidocaine was used to anesthetize the surrounding skin area. Under ultrasound guidance, an HD catheter was introduced into the Right Femoral Vein using the Seldinger technique. The catheter was threaded smoothly over the guide wire and appropriate blood return was obtained. Each lumen of the catheter was evacuated of air and flushed with sterile saline. The catheter was then sutured in place to the skin and a sterile dressing applied. Estimated Blood Loss was minimal
[2019-07-19 11:20] LABS: Potassium 5.6 mmol/L (3.5-5.0)
[2019-07-19 12:22] LABS: Creatine Kinase 5327 U/L (10-223)
--- NOTE | 2019-07-19 12:48 | CONS ---
NEPHROLOGY CONSULTATION REPORT: DATE OF CONSULT: 07/19/19 REASON FOR CONSULT: TITI, metabolic acidosis, hyperkalemia. HISTORY OF PRESENT ILLNESS: A 64-year-old male with past medical history of hypertension, alcoholism, chronic hepatitis C infection, recent B-cell lymphoma for which he has been receiving R-CHOP therapy, admitted to the ICU in critical condition with neutropenic fever and sepsis secondary to E. coli. On review of records, the patient was noted to be significantly hypotensive with blood pressure as low as 55/36. The patient has received IV fluids and is currently on Levophed. The patient's lactate was also noted to be elevated at 13 and the patient noted to be severely acidotic with a pH of 7. The patient is intubated and not able to provide further history. PAST MEDICAL HISTORY: 1. B-cell lymphoma. 2. Chronic hepatitis C infection since 1988. 3. Hypertension. 4. Alcoholism. MEDICATIONS: At home: 1. Chlorthalidone 25 mg daily. 2. Oxycodone 10 mg to 20 mg q.4 hours p.r.n. FAMILY HISTORY: Father with coronary artery disease and CABG, in his 90s. Mother with breast cancer and colon cancer at age 89. REVIEW OF SYSTEMS: Unable to obtain as the patient is intubated, but per discussion with his girl friend, the patient has been feeling poorly over the last 2 weeks prior to admission with nausea, vomiting, diarrhea, fatigue, but 1 or 2 months ago was functional. DIAGNOSTIC STUDIES/LAB DATA: WBC 0.3, hemoglobin 8.3, hematocrit 27, platelets noted to be 37. Sodium 141, potassium 5.6, chloride 105, CO2 of 14, BUN 35, creatinine 3.46. Lactic acid 18.1. ASSESSMENT AND PLAN: A 64-year-old male with B-cell lymphoma, on R-CHOP therapy , hepatitis C in the ICU with neutropenic sepsis with blood cultures growing E. coli. 1. Acute kidney injury, likely ischemic acute tubular necrosis in the setting of severe sepsis and febrile neutropenia with hypotension with blood pressure in the 50s. The patient received vancomycin and cefepime, and further antibiotic therapy per the ICU team and oncology. 2. Severe metabolic acidosis with pH of 7, elevated lactate, hyperkalemia and anuria in the setting of his clinical illness and acute tubular necrosis. For above indications of severe metabolic acidosis, anuria, and hyperkalemia, we will initiate hemodialysis. 3. Appreciate ICU attending help in placing hemodialysis catheter currently as a femoral line. 4. Discussed dialysis orders with the nurse, will run them even today for 2 hours. 5. Discussed with the family that his prognosis is poor and also discussed that we do not CVVH/continuous dialysis available at this facility. We will attempt routine hemodialysis with low temperature and low blood flow, dialysate flows today and see if the patient tolerates the procedure. 6. We will follow closely with ICU team and during the patient's dialysis session. [id number]/[facility] #: [id number] [place]
[2019-07-19] MEDS ORDERED: EPINEPHrine 4 mg/1000 mL Drip (using amps) dosed in mcg/min IV SCH ×2 (14:30→21:00)
--- NOTE | 2019-07-19 14:34 | PN ---
Date of Service: 07/19/19 Critical Care Services: patient remains on Levophed and Vasopressin off sedation, still not responding or moving extremities Remains anuric. HD started earlier today. Not removing any fluid Lactates remain elevated and severely acidotic Vital Signs: Temp Pulse Resp BP SpO2 FiO2 97.2 F 84 24 103/63 98 100 07/19/19 12:00 07/19/19 12:00 07/19/19 12:00 07/19/19 12:00 07/19/19 12:00 07/19 08:09 Physical Exam: sedated. jaundiced. intubated. non-responsive. RRR. Decreased BS's. Abd tense and distended. no visible rebound or guarding. DAY + 2 Fluid Balance (Past 24 Hours): I= O= Net Intake & Output 07/17/19 07/18/19 07/19/19 07/20/19 06:59 06:59 06:59 06:59 Intake Total 5481 Output Total 1905 3 Balance 3576 -3 Weight 236 lb 5.252 oz Intake: IV Fluids 3883 Magnesium 63 NS (0.9%) 820 IVPB 295 ABX - VANCOMYCIN 295 Medicated IV 1002 Bicarb drip 356 CC - Norepinephrine/ 587 Levophed CC - Propofol/Diprivan 27 CC - Vasopressin/ 32 Pitressin Platelets 301 Output: NG Tube Drainage Amount 1800 Garcia 80 3 Suctioning 25 Labs: Laboratory Results - last 24 hr 07/18/19 07/18/19 07/18/19 18:44 18:44 18:44 WBC 0.4 L RBC 3.24 L Hgb 10.9 L Hct 33 L MCV 101 H MCH 34 H MCHC 33 RDW 16 H Plt Count 34 L MPV 10.6 H Neut % (Auto) 71.6 Lymph % (Auto) 23.5 Aiken % (Auto) 1.0 Eos % (Auto) 0.0 Baso % (Auto) 3.9 Absolute Neuts (auto) 0.3 L* Absolute Lymphs (auto) 0.1 L Absolute Monos (auto) 0.0 Absolute Eos (auto) 0.0 Absolute Basos (auto) 0.0 Absolute Nucleated RBC 0.0 Immature Gran % 13.0 H Neutrophils % 63.0 Band Neutrophils % 13.0 H Lymphocytes % 23.0 Monocytes % 1.0 Nucleated RBC % 0.0 Normal RBC Morphology Not Reportable Hypochromasia 1+ Microcytosis 1+ Macrocytosis 1+ INR (Anticoag Therapy) Fibrinogen D-Dimer, Quantitative Patient Temperature ABG pH ABG pH (Temp Correct) ABG pCO2 ABG pCO2 (Temp Corrct ABG pO2 ABG pO2 (Temp Correct ABG HCO3 ABG O2 Saturation ABG Base Excess Respiration Rate O2 Delivery Device Ventilator Type Vent Mode FiO2 Inspiratory Time PEEP Pressure Support Pressure Control EPAP IPAP BiPAP Sodium 135 Potassium 3.7 Chloride 98 L Carbon Dioxide 18 L Anion Gap 19 H BUN 38 H Creatinine 2.10 H Est GFR ( Amer) 38.9 Est GFR (Non-Af Amer) 32.2 BUN/Creatinine Ratio 18.1 Glucose 132 H POC Glucose (mg/dL) Lactic Acid 14.9 H* Uric Acid 4.3 L Calcium 8.4 L Ionized Calcium Magnesium 1.7 L Total Bilirubin 2.80 H AST 47 H ALT 46 Alkaline Phosphatase 59 Lactate Dehydrogenase 229 Total Creatine Kinase Troponin I 0.20 H* C-Reactive Protein 129.92 H B-Natriuretic Peptide Total Protein 4.9 L Albumin 2.4 L Globulin 2.5 Albumin/Globulin Ratio 1.0 Urine Color Urine Appearance Urine pH Ur Specific [place] Urine Protein Urine Ketones Urine Blood Urine Nitrate Urine Bilirubin Urine Urobilinogen Ur Leukocyte Esterase Urine WBC (Auto) Urine RBC (Auto) Urine Bacteria Hyaline Casts Ur Creatinine Concen U Sodium Concentration Urine Glucose Random Vancomycin Blood Type Antibody Screen 07/18/19 07/18/19 07/18/19 18:44 18:44 18:44 WBC RBC Hgb Hct MCV MCH MCHC RDW Plt Count MPV Neut % (Auto) Lymph % (Auto) Aiken % (Auto) Eos % (Auto) Baso % (Auto) Absolute Neuts (auto) Absolute Lymphs (auto) Absolute Monos (auto) Absolute Eos (auto) Absolute Basos (auto) Absolute Nucleated RBC Immature Gran % Neutrophils % Band Neutrophils % Lymphocytes % Monocytes % Nucleated RBC % Normal RBC Morphology Hypochromasia Microcytosis Macrocytosis INR (Anticoag Therapy) 2.04 H Fibrinogen > 230.1 D-Dimer, Quantitative > 1050 H Patient Temperature Not Reportable ABG pH 7.34 L ABG pH (Temp Correct) Not Reportable ABG pCO2 26 L ABG pCO2 (Temp Corrct Not Reportable ABG pO2 177 H ABG pO2 (Temp Correct Not Reportable ABG HCO3 17.1 L ABG O2 Saturation 99.9 H ABG Base Excess -10.1 L Respiration Rate Not Reportable O2 Delivery Device Nrb Ventilator Type Not Reportable Vent Mode Not Reportable FiO2 Not Reportable Inspiratory Time Not Reportable PEEP Not Reportable Pressure Support Not Reportable Pressure Control Not Reportable EPAP Not Reportable IPAP Not Reportable BiPAP Not Reportable Sodium Potassium Chloride Carbon Dioxide Anion Gap BUN Creatinine Est GFR ( Amer) Est GFR (Non-Af Amer) BUN/Creatinine Ratio Glucose POC Glucose (mg/dL) Lactic Acid Uric Acid Calcium Ionized Calcium Magnesium Total Bilirubin AST ALT Alkaline Phosphatase Lactate Dehydrogenase Total Creatine Kinase Troponin I C-Reactive Protein B-Natriuretic Peptide 353 H Total Protein Albumin Globulin Albumin/Globulin Ratio Urine Color Urine Appearance Urine pH Ur Specific [place] Urine Protein Urine Ketones Urine Blood Urine Nitrate Urine Bilirubin Urine Urobilinogen Ur Leukocyte Esterase Urine WBC (Auto) Urine RBC (Auto) Urine Bacteria Hyaline Casts Ur Creatinine Concen U Sodium Concentration Urine Glucose Random Vancomycin Blood Type Antibody Screen 07/18/19 07/18/19 07/18/19 18:44 19:05 19:05 WBC RBC Hgb Hct MCV MCH MCHC RDW Plt Count MPV Neut % (Auto) Lymph % (Auto) Aiken % (Auto) Eos % (Auto) Baso % (Auto) Absolute Neuts (auto) Absolute Lymphs (auto) Absolute Monos (auto) Absolute Eos (auto) Absolute Basos (auto) Absolute Nucleated RBC Immature Gran % Neutrophils % Band Neutrophils % Lymphocytes % Monocytes % Nucleated RBC % Normal RBC Morphology Hypochromasia Microcytosis Macrocytosis INR (Anticoag Therapy) Fibrinogen D-Dimer, Quantitative Patient Temperature ABG pH ABG pH (Temp Correct) ABG pCO2 ABG pCO2 (Temp Corrct ABG pO2 ABG pO2 (Temp Correct ABG HCO3 ABG O2 Saturation ABG Base Excess Respiration Rate O2 Delivery Device Ventilator Type Vent Mode FiO2 Inspiratory Time PEEP Pressure Support Pressure Control EPAP IPAP BiPAP Sodium Potassium Chloride Carbon Dioxide Anion Gap BUN Creatinine Est GFR ( Amer) Est GFR (Non-Af Amer) BUN/Creatinine Ratio Glucose POC Glucose (mg/dL) Lactic Acid Uric Acid Calcium Ionized Calcium Magnesium Total Bilirubin AST ALT Alkaline Phosphatase Lactate Dehydrogenase Total Creatine Kinase Troponin I C-Reactive Protein B-Natriuretic Peptide Total Protein Albumin Globulin Albumin/Globulin Ratio Urine Color Margarita Urine Appearance Cloudy Urine pH 5.0 Ur Specific [place] 1.024 Urine Protein 1+(30 mg/dl) A Urine Ketones Trace A Urine Blood 1+ A Urine Nitrate Negative Urine Bilirubin Negative Urine Urobilinogen Positive A Ur Leukocyte Esterase Negative Urine WBC (Auto) 2+(11-20/hpf) A Urine RBC (Auto) Absent Urine Bacteria Absent Hyaline Casts Present A Ur Creatinine Concen 293.02 U Sodium Concentration < 18 Urine Glucose 1+(50 mg/dl) A Random Vancomycin Blood Type O Positive Antibody Screen 07/18/19 07/18/19 07/18/19 22:30 22:30 22:30 WBC 0.4 L RBC 2.61 L Hgb 8.8 L Hct 28 L MCV 106 H MCH 34 H MCHC 32 RDW 17 H Plt Count 17 L* MPV 9.3 Neut % (Auto) 68.3 Lymph % (Auto) 28.9 Aiken % (Auto) 0.7 Eos % (Auto) 0.4 Baso % (Auto) 1.7 Absolute Neuts (auto) 0.3 L* Absolute Lymphs (auto) 0.1 L Absolute Monos (auto) 0.0 Absolute Eos (auto) 0.0 Absolute Basos (auto) 0.0 Absolute Nucleated RBC 0.0 Immature Gran % Neutrophils % Band Neutrophils % Lymphocytes % Monocytes % Nucleated RBC % 0.2 Normal RBC Morphology Hypochromasia Microcytosis Macrocytosis INR (Anticoag Therapy) Fibrinogen D-Dimer, Quantitative Patient Temperature ABG pH ABG pH (Temp Correct) ABG pCO2 ABG pCO2 (Temp Corrct ABG pO2 ABG pO2 (Temp Correct ABG HCO3 ABG O2 Saturation ABG Base Excess Respiration Rate O2 Delivery Device Ventilator Type Vent Mode FiO2 Inspiratory Time PEEP Pressure Support Pressure Control EPAP IPAP BiPAP Sodium 138 Potassium 4.2 Chloride 107 Carbon Dioxide 17 L Anion Gap 14 H BUN 36 H Creatinine 2.45 H Est GFR ( Amer) 32.6 Est GFR (Non-Af Amer) 26.9 BUN/Creatinine Ratio 14.7 Glucose 24 L* POC Glucose (mg/dL) Lactic Acid Uric Acid Calcium 7.4 L Ionized Calcium Magnesium Total Bilirubin AST ALT Alkaline Phosphatase Lactate Dehydrogenase Total Creatine Kinase Troponin I 0.25 H* C-Reactive Protein B-Natriuretic Peptide Total Protein Albumin Globulin Albumin/Globulin Ratio Urine Color Urine Appearance Urine pH Ur Specific [place] Urine Protein Urine Ketones Urine Blood Urine Nitrate Urine Bilirubin Urine Urobilinogen Ur Leukocyte Esterase Urine WBC (Auto) Urine RBC (Auto) Urine Bacteria Hyaline Casts Ur Creatinine Concen U Sodium Concentration Urine Glucose Random Vancomycin Blood Type O Positive Antibody Screen Negative 07/18/19 07/18/19 07/18/19 22:30 23:10 23:32 WBC RBC Hgb Hct MCV MCH MCHC RDW Plt Count MPV Neut % (Auto) Lymph % (Auto) Aiken % (Auto) Eos % (Auto) Baso % (Auto) Absolute Neuts (auto) Absolute Lymphs (auto) Absolute Monos (auto) Absolute Eos (auto) Absolute Basos (auto) Absolute Nucleated RBC Immature Gran % Neutrophils % Band Neutrophils % Lymphocytes % Monocytes % Nucleated RBC % Normal RBC Morphology Hypochromasia Microcytosis Macrocytosis INR (Anticoag Therapy) Fibrinogen D-Dimer, Quantitative Patient Temperature Not Reportable ABG pH < 7.00 L* ABG pH (Temp Correct) Not Reportable ABG pCO2 65 H ABG pCO2 (Temp Corrct Not Reportable ABG pO2 55 L* ABG pO2 (Temp Correct Not Reportable ABG HCO3 TNP ABG O2 Saturation 78.6 L ABG Base Excess TNP Respiration Rate 12 O2 Delivery Device vent Ventilator Type Vent Mode pcv FiO2 100 Inspiratory Time 1.0 PEEP 8 Pressure Support Pressure Control 28 EPAP Not Reportable IPAP Not Reportable BiPAP Not Reportable Sodium Potassium Chloride Carbon Dioxide Anion Gap BUN Creatinine Est GFR ( Amer) Est GFR (Non-Af Amer) BUN/Creatinine Ratio Glucose POC Glucose (mg/dL) 124 H Lactic Acid 11.8 H* Uric Acid Calcium Ionized Calcium Magnesium Total Bilirubin AST ALT Alkaline Phosphatase Lactate Dehydrogenase Total Creatine Kinase Troponin I C-Reactive Protein B-Natriuretic Peptide Total Protein Albumin Globulin Albumin/Globulin Ratio Urine Color Urine Appearance Urine pH Ur Specific [place] Urine Protein Urine Ketones Urine Blood Urine Nitrate Urine Bilirubin Urine Urobilinogen Ur Leukocyte Esterase Urine WBC (Auto) Urine RBC (Auto) Urine Bacteria Hyaline Casts Ur Creatinine Concen U Sodium Concentration Urine Glucose Random Vancomycin Blood Type Antibody Screen 07/19/19 07/19/19 07/19/19 00:25 00:37 02:11 WBC RBC Hgb Hct MCV MCH MCHC RDW Plt Count MPV Neut % (Auto) Lymph % (Auto) Aiken % (Auto) Eos % (Auto) Baso % (Auto) Absolute Neuts (auto) Absolute Lymphs (auto) Absolute Monos (auto) Absolute Eos (auto) Absolute Basos (auto) Absolute Nucleated RBC Immature Gran % Neutrophils % Band Neutrophils % Lymphocytes % Monocytes % Nucleated RBC % Normal RBC Morphology Hypochromasia Microcytosis Macrocytosis INR (Anticoag Therapy) Fibrinogen D-Dimer, Quantitative Patient Temperature Not Reportable ABG pH < 7.00 L* ABG pH (Temp Correct) Not Reportable ABG pCO2 66 H ABG pCO2 (Temp Corrct Not Reportable ABG pO2 66 L ABG pO2 (Temp Correct Not Reportable ABG HCO3 TNP ABG O2 Saturation 89.4 L ABG Base Excess TNP Respiration Rate 16 O2 Delivery Device vent Ventilator Type 500 Vent Mode cmv FiO2 100 Inspiratory Time 0.75 PEEP 8 Pressure Support Not Reportable Pressure Control Not Reportable EPAP Not Reportable IPAP Not Reportable BiPAP Not Reportable Sodium Potassium Chloride Carbon Dioxide Anion Gap BUN Creatinine Est GFR ( Amer) Est GFR (Non-Af Amer) BUN/Creatinine Ratio Glucose POC Glucose (mg/dL) 64 L 129 H Lactic Acid Uric Acid Calcium Ionized Calcium Magnesium Total Bilirubin AST ALT Alkaline Phosphatase Lactate Dehydrogenase Total Creatine Kinase Troponin I C-Reactive Protein B-Natriuretic Peptide Total Protein Albumin Globulin Albumin/Globulin Ratio Urine Color Urine Appearance Urine pH Ur Specific [place] Urine Protein Urine Ketones Urine Blood Urine Nitrate Urine Bilirubin Urine Urobilinogen Ur Leukocyte Esterase Urine WBC (Auto) Urine RBC (Auto) Urine Bacteria Hyaline Casts Ur Creatinine Concen U Sodium Concentration Urine Glucose Random Vancomycin Blood Type Antibody Screen 07/19/19 07/19/19 07/19/19 02:50 03:23 03:23 WBC 0.4 L RBC 2.74 L Hgb 9.2 L Hct 29 L MCV 107 H MCH 33 H MCHC 31 RDW 17 H Plt Count 11 L* MPV 9.5 Neut % (Auto) 37.9 Lymph % (Auto) 38.6 Aiken % (Auto) 22.5 Eos % (Auto) 0.3 Baso % (Auto) 0.7 Absolute Neuts (auto) 0.1 L* Absolute Lymphs (auto) 0.1 L Absolute Monos (auto) 0.1 Absolute Eos (auto) 0.0 Absolute Basos (auto) 0.0 Absolute Nucleated RBC TNP Immature Gran % Neutrophils % Band Neutrophils % Lymphocytes % Monocytes % Nucleated RBC % TNP Normal RBC Morphology Hypochromasia Microcytosis Macrocytosis INR (Anticoag Therapy) Fibrinogen D-Dimer, Quantitative Patient Temperature Not Reportable ABG pH 7.01 L* ABG pH (Temp Correct) Not Reportable ABG pCO2 52 H ABG pCO2 (Temp Corrct Not Reportable ABG pO2 55 L* ABG pO2 (Temp Correct Not Reportable ABG HCO3 10.4 L ABG O2 Saturation 83.0 L ABG Base Excess -18.0 L Respiration Rate 20 O2 Delivery Device vent Ventilator Type 600 Vent Mode cmv FiO2 100 Inspiratory Time 0.75 PEEP 10 Pressure Support Not Reportable Pressure Control Not Reportable EPAP Not Reportable IPAP Not Reportable BiPAP Not Reportable Sodium 136 Potassium 4.6 Chloride 107 Carbon Dioxide 14 L* Anion Gap 15 H BUN 36 H Creatinine 2.73 H Est GFR ( Amer) 28.7 Est GFR (Non-Af Amer) 23.8 BUN/Creatinine Ratio 13.2 Glucose 85 POC Glucose (mg/dL) Lactic Acid Uric Acid Calcium 7.1 L Ionized Calcium Magnesium Total Bilirubin 3.20 H AST 872 H ALT 323 H Alkaline Phosphatase 48 Lactate Dehydrogenase Total Creatine Kinase 5327 H Troponin I 0.31 H* C-Reactive Protein B-Natriuretic Peptide Total Protein 3.9 L Albumin 1.9 L Globulin 2.0 Albumin/Globulin Ratio 1.0 Urine Color Urine Appearance Urine pH Ur Specific [place] Urine Protein Urine Ketones Urine Blood Urine Nitrate Urine Bilirubin Urine Urobilinogen Ur Leukocyte Esterase Urine WBC (Auto) Urine RBC (Auto) Urine Bacteria Hyaline Casts Ur Creatinine Concen U Sodium Concentration Urine Glucose Random Vancomycin Blood Type Antibody Screen 07/19/19 07/19/19 07/19/19 03:23 04:00 06:00 WBC RBC Hgb Hct MCV MCH MCHC RDW Plt Count MPV Neut % (Auto) Lymph % (Auto) [place] % (Auto) Eos % (Auto) Baso % (Auto) Absolute Neuts (auto) Absolute Lymphs (auto) Absolute Monos (auto) Absolute Eos (auto) Absolute Basos (auto) Absolute Nucleated RBC Immature Gran % Neutrophils % Band Neutrophils % Lymphocytes % Monocytes % Nucleated RBC % Normal RBC Morphology Hypochromasia Microcytosis Macrocytosis INR (Anticoag Therapy) Fibrinogen D-Dimer, Quantitative Patient Temperature ABG pH ABG pH (Temp Correct) ABG pCO2 ABG pCO2 (Temp Corrct ABG pO2 ABG pO2 (Temp Correct ABG HCO3 ABG O2 Saturation ABG Base Excess Respiration Rate O2 Delivery Device Ventilator Type Vent Mode FiO2 Inspiratory Time PEEP Pressure Support Pressure Control EPAP IPAP BiPAP Sodium 139 Potassium 5.0 Chloride 106 Carbon Dioxide 14 L* Anion Gap 19 H BUN 35 H Creatinine 3.03 H Est GFR ( Amer) 25.5 Est GFR (Non-Af Amer) 21.1 BUN/Creatinine Ratio 11.6 Glucose 62 L POC Glucose (mg/dL) 84 Lactic Acid 12.1 H* Uric Acid Calcium 7.2 L Ionized Calcium Magnesium Total Bilirubin AST ALT Alkaline Phosphatase Lactate Dehydrogenase Total Creatine Kinase Troponin I 0.39 H* C-Reactive Protein B-Natriuretic Peptide Total Protein Albumin Globulin Albumin/Globulin Ratio Urine Color Urine Appearance Urine pH Ur Specific [place] Urine Protein Urine Ketones Urine Blood Urine Nitrate Urine Bilirubin Urine Urobilinogen Ur Leukocyte Esterase Urine WBC (Auto) Urine RBC (Auto) Urine Bacteria Hyaline Casts Ur Creatinine Concen U Sodium Concentration Urine Glucose Random Vancomycin 14.7 Blood Type Antibody Screen 07/19/19 07/19/19 07/19/19 06:00 06:00 06:00 WBC 0.3 L RBC 2.46 L Hgb 8.3 L Hct 27 L MCV 109 H MCH 34 H MCHC 31 RDW 17 H Plt Count 37 L D MPV 8.0 Neut % (Auto) 55.2 Lymph % (Auto) 40.4 Aiken % (Auto) 3.0 Eos % (Auto) 0.9 Baso % (Auto) 0.5 Absolute Neuts (auto) 0.2 L* Absolute Lymphs (auto) 0.1 L Absolute Monos (auto) 0.0 Absolute Eos (auto) 0.0 Absolute Basos (auto) 0.0 Absolute Nucleated RBC TNP Immature Gran % Neutrophils % Band Neutrophils % Lymphocytes % Monocytes % Nucleated RBC % TNP Normal RBC Morphology Hypochromasia Microcytosis Macrocytosis INR (Anticoag Therapy) 3.33 H Fibrinogen D-Dimer, Quantitative Patient Temperature ABG pH ABG pH (Temp Correct) ABG pCO2 ABG pCO2 (Temp Corrct ABG pO2 ABG pO2 (Temp Correct ABG HCO3 ABG O2 Saturation ABG Base Excess Respiration Rate O2 Delivery Device Ventilator Type Vent Mode FiO2 Inspiratory Time PEEP Pressure Support Pressure Control EPAP IPAP BiPAP Sodium Potassium Chloride Carbon Dioxide Anion Gap BUN Creatinine Est GFR ( Amer) Est GFR (Non-Af Amer) BUN/Creatinine Ratio Glucose POC Glucose (mg/dL) Lactic Acid Uric Acid Calcium Ionized Calcium 0.96 L Magnesium Total Bilirubin AST ALT Alkaline Phosphatase Lactate Dehydrogenase Total Creatine Kinase Troponin I C-Reactive Protein B-Natriuretic Peptide Total Protein Albumin Globulin Albumin/Globulin Ratio Urine Color Urine Appearance Urine pH Ur Specific [place] Urine Protein Urine Ketones Urine Blood Urine Nitrate Urine Bilirubin Urine Urobilinogen Ur Leukocyte Esterase Urine WBC (Auto) Urine RBC (Auto) Urine Bacteria Hyaline Casts Ur Creatinine Concen U Sodium Concentration Urine Glucose Random Vancomycin Blood Type Antibody Screen 07/19/19 07/19/19 07/19/19 08:05 08:15 10:38 WBC RBC Hgb Hct MCV MCH MCHC RDW Plt Count MPV Neut % (Auto) Lymph % (Auto) [place] % (Auto) Eos % (Auto) Baso % (Auto) Absolute Neuts (auto) Absolute Lymphs (auto) Absolute Monos (auto) Absolute Eos (auto) Absolute Basos (auto) Absolute Nucleated RBC Immature Gran % Neutrophils % Band Neutrophils % Lymphocytes % Monocytes % Nucleated RBC % Normal RBC Morphology Hypochromasia Microcytosis Macrocytosis INR (Anticoag Therapy) Fibrinogen D-Dimer, Quantitative Patient Temperature 36.4 ABG pH < 7.00 L* ABG pH (Temp Correct) Not Reportable ABG pCO2 58 H ABG pCO2 (Temp Corrct Not Reportable ABG pO2 62 L ABG pO2 (Temp Correct Not Reportable ABG HCO3 TNP ABG O2 Saturation 91.9 L ABG Base Excess TNP Respiration Rate 24 O2 Delivery Device vent Ventilator Type 600 Vent Mode Cmv FiO2 100 Inspiratory Time .75 PEEP 15 Pressure Support Not Reportable Pressure Control Not Reportable EPAP Not Reportable IPAP Not Reportable BiPAP Not Reportable Sodium 141 Potassium 5.6 H Chloride 105 Carbon Dioxide 14 L* Anion Gap 22 H BUN 35 H Creatinine 3.46 H Est GFR ( Amer) 21.9 Est GFR (Non-Af Amer) 18.1 BUN/Creatinine Ratio 10.1 Glucose 102 H POC Glucose (mg/dL) 121 H Lactic Acid Uric Acid Calcium 7.4 L Ionized Calcium Magnesium Total Bilirubin 3.00 H AST 2498 H ALT 733 H Alkaline Phosphatase 47 Lactate Dehydrogenase Total Creatine Kinase Troponin I C-Reactive Protein B-Natriuretic Peptide Total Protein 3.8 L Albumin 1.9 L Globulin 1.9 L Albumin/Globulin Ratio 1.0 Urine Color Urine Appearance Urine pH Ur Specific [place] Urine Protein Urine Ketones Urine Blood Urine Nitrate Urine Bilirubin Urine Urobilinogen Ur Leukocyte Esterase Urine WBC (Auto) Urine RBC (Auto) Urine Bacteria Hyaline Casts Ur Creatinine Concen U Sodium Concentration Urine Glucose Random Vancomycin Blood Type Antibody Screen 07/19/19 07/19/19 10:38 10:38 WBC RBC Hgb Hct MCV MCH MCHC RDW Plt Count MPV Neut % (Auto) Lymph % (Auto) [place] % (Auto) Eos % (Auto) Baso % (Auto) Absolute Neuts (auto) Absolute Lymphs (auto) Absolute Monos (auto) Absolute Eos (auto) Absolute Basos (auto) Absolute Nucleated RBC Immature Gran % Neutrophils % Band Neutrophils % Lymphocytes % Monocytes % Nucleated RBC % Normal RBC Morphology Hypochromasia Microcytosis Macrocytosis INR (Anticoag Therapy) Fibrinogen D-Dimer, Quantitative Patient Temperature ABG pH ABG pH (Temp Correct) ABG pCO2 ABG pCO2 (Temp Corrct ABG pO2 ABG pO2 (Temp Correct ABG HCO3 ABG O2 Saturation ABG Base Excess Respiration Rate O2 Delivery Device Ventilator Type Vent Mode FiO2 Inspiratory Time PEEP Pressure Support Pressure Control EPAP IPAP BiPAP Sodium Potassium Chloride Carbon Dioxide Anion Gap BUN Creatinine Est GFR ( Amer) Est GFR (Non-Af Amer) BUN/Creatinine Ratio Glucose POC Glucose (mg/dL) 124 H Lactic Acid 18.1 H* Uric Acid Calcium Ionized Calcium Magnesium Total Bilirubin AST ALT Alkaline Phosphatase Lactate Dehydrogenase Total Creatine Kinase Troponin I C-Reactive Protein B-Natriuretic Peptide Total Protein Albumin Globulin Albumin/Globulin Ratio Urine Color Urine Appearance Urine pH Ur Specific [place] Urine Protein Urine Ketones Urine Blood Urine Nitrate Urine Bilirubin Urine Urobilinogen Ur Leukocyte Esterase Urine WBC (Auto) Urine RBC (Auto) Urine Bacteria Hyaline Casts Ur Creatinine Concen U Sodium Concentration Urine Glucose Random Vancomycin Blood Type Antibody Screen Impression: ARF on MV D#1 s/p PTX with CT placement and resolution of PTX on CXR. TITI on HD now Lactic acidosis Septic shock with GNB in blood Encephalopathy stage III DLBCL receiving curative intent chemotherapy, s/p C5 R-CHOP Plan: continue vasopressor support continue HD for severe acidosis continue empiric ABX--Cefepime and Ciprofloxocin. D/W ID Service. benjie Had long d/w family including ex - and sister and brother in-law. Described to them the severity of his condition and his high mortality risk. They requested that we pursue HD and continue all aggressive measures. Critical Care Time: 120 minutes
[2019-07-19 14:35] LABS: Hepatitis B Surface Antigen Nonreactive (Nonreactive)
[2019-07-19 14:52] LABS: Hepatitis B Surface Ab Not Immune (Immune)
[2019-07-19] MEDS ORDERED: Ciprofloxacin 400MG IVPREMIX(* 400 MG/200 ML BAG IVPB SCH (15:00)
[2019-07-19 15:06] LABS: Hepatitis C Antibody Reactive (Negative)
[2019-07-19] MEDS ORDERED: Heparin DIALYSIS ONLY(*) 1,000 UNITS/ML VIAL DIALYSIS ONE (15:15)
[2019-07-19 15:53] LABS: Albumin 1.9 g/dL (3.2-5.2); Calcium 6.7 mg/dL (8.6-10.3); EGFR African American 37.1 (>60); EGFR Non-African American 30.6 (>60); Globulin 1.9 g/dL (2-4); Total Bilirubin 3.4 mg/dL (0.2-1.0); Total Protein 3.8 g/dL (6.4-8.9)
[2019-07-19] MEDS ORDERED: NS IV SCH ×2 (16:00→20:00)
[2019-07-19] MEDS ORDERED: NOREPINEPHRINE IV SCH ×2 (16:00→20:00)
[2019-07-19 16:01] LABS: Hematocrit 24 % (42-52); Hemoglobin 7.4 g/dL (14.0-18.0); Mean Corpuscular HGB Conc 31 g/dL (31-36); Mean Corpuscular Hemoglobin 34 pg (27-31); Mean Corpuscular Volume 110 fL (80-94); Mean Platelet Volume 8.5 fL (7.4-10.4); Platelet Count 10 10^3/uL (150-450); Red Blood Count 2.19 10^6 /uL (4.18-5.48); Red Cell Distribution Width 17 % (10-15); White Blood Count 0.3 10^3/uL (3.5-10.8)
[2019-07-19 16:32] LABS: ABS Neutrophils 0.1 10^3/ul (1.5-7.7)
[2019-07-19 16:33] LABS: ABS Lymphocytes 0.2 10^3/ul (1.0-4.8); Eosinophil % 1.2 %; Lymphocyte % 58.1 %
--- NOTE | 2019-07-19 16:48 | PN ---
Date of Service: 07/19/19 Critical Care Services: had continuous d/w family during day. also d/w Daughter in [place]. Daughter in [place] deferred proxy to patient's sister. family understands the severity of his illness. DNR was d/w family and they have chosen to make patient DNR. We will otherwise continue present measures. Will hold off on transfusing patient now. Continue Vasopressin, Levophed and Epi gtt and place patient on Bi-level. Again, no CPR. Daughter coming from [place] tomorrow morning and understands her dad will most likely not do well tonight. Vital Signs: Temp Pulse Resp BP SpO2 FiO2 97.2 F 92 24 149/79 100 100 07/19/19 16:30 07/19/19 16:30 07/19/19 12:00 07/19/19 16:30 07/19/19 16:30 07/19 08:09 Physical Exam: Gen: HEENT: Lungs: Cardiac: Abdomen: Extremities: Neuro: Fluid Balance (Past 24 Hours): I= O= Net Intake & Output 07/17/19 07/18/19 07/19/19 07/20/19 06:59 06:59 06:59 06:59 Intake Total 5481 2883.8 Output Total 1905 253 Balance 3576 2630.8 Weight 236 lb 5.252 oz Intake: IV Fluids 3883 198 Magnesium 63 NS (0.9%) 820 198 IVPB 295 128 ABX - CEFEPIME 63 ABX - VANCOMYCIN 295 Calcium Gluconate 65 Medicated IV 1002 2247.8 Bicarb drip 356 1180 CC - Epinephrine 269 CC - Norepinephrine/ 587 448 Levophed CC - Propofol/Diprivan 27 CC - Vasopressin/ 32 67.8 Pitressin GEN - Pantoprazole/ 283 Protonix Fresh Frozen Plasma 310 Platelets 301 Output: NG Tube Drainage Amount 1800 G Tube 250 Garcia 80 3 Suctioning 25 Labs: Laboratory Results - last 24 hr 07/18/19 07/18/19 07/18/19 18:44 18:44 18:44 WBC 0.4 L RBC 3.24 L Hgb 10.9 L Hct 33 L MCV 101 H MCH 34 H MCHC 33 RDW 16 H Plt Count 34 L MPV 10.6 H Neut % (Auto) 71.6 Lymph % (Auto) 23.5 [place] % (Auto) 1.0 Eos % (Auto) 0.0 Baso % (Auto) 3.9 Absolute Neuts (auto) 0.3 L* Absolute Lymphs (auto) 0.1 L Absolute Monos (auto) 0.0 Absolute Eos (auto) 0.0 Absolute Basos (auto) 0.0 Absolute Nucleated RBC 0.0 Immature Gran % 13.0 H Neutrophils % 63.0 Band Neutrophils % 13.0 H Lymphocytes % 23.0 Monocytes % 1.0 Nucleated RBC % 0.0 Normal RBC Morphology Not Reportable Hypochromasia 1+ Microcytosis 1+ Macrocytosis 1+ INR (Anticoag Therapy) Fibrinogen D-Dimer, Quantitative Patient Temperature ABG pH ABG pH (Temp Correct) ABG pCO2 ABG pCO2 (Temp Corrct ABG pO2 ABG pO2 (Temp Correct ABG HCO3 ABG O2 Saturation ABG Base Excess Respiration Rate O2 Delivery Device Ventilator Type Vent Mode FiO2 Inspiratory Time PEEP Pressure Support Pressure Control EPAP IPAP BiPAP Sodium 135 Potassium 3.7 Chloride 98 L Carbon Dioxide 18 L Anion Gap 19 H BUN 38 H Creatinine 2.10 H Est GFR ( Amer) 38.9 Est GFR (Non-Af Amer) 32.2 BUN/Creatinine Ratio 18.1 Glucose 132 H POC Glucose (mg/dL) Lactic Acid 14.9 H* Uric Acid 4.3 L Calcium 8.4 L Ionized Calcium Magnesium 1.7 L Total Bilirubin 2.80 H AST 47 H ALT 46 Alkaline Phosphatase 59 Lactate Dehydrogenase 229 Total Creatine Kinase Troponin I 0.20 H* C-Reactive Protein 129.92 H B-Natriuretic Peptide Total Protein 4.9 L Albumin 2.4 L Globulin 2.5 Albumin/Globulin Ratio 1.0 Urine Color Urine Appearance Urine pH Ur Specific [place] Urine Protein Urine Ketones Urine Blood Urine Nitrate Urine Bilirubin Urine Urobilinogen Ur Leukocyte Esterase Urine WBC (Auto) Urine RBC (Auto) Urine Bacteria Hyaline Casts Ur Creatinine Concen U Sodium Concentration Urine Glucose Random Vancomycin Hepatitis B Antibody Hep Bs Antigen Hepatitis C Antibody Hepatitis C Ab Index Blood Type Antibody Screen 07/18/19 07/18/19 07/18/19 18:44 18:44 18:44 WBC RBC Hgb Hct MCV MCH MCHC RDW Plt Count MPV Neut % (Auto) Lymph % (Auto) [place] % (Auto) Eos % (Auto) Baso % (Auto) Absolute Neuts (auto) Absolute Lymphs (auto) Absolute Monos (auto) Absolute Eos (auto) Absolute Basos (auto) Absolute Nucleated RBC Immature Gran % Neutrophils % Band Neutrophils % Lymphocytes % Monocytes % Nucleated RBC % Normal RBC Morphology Hypochromasia Microcytosis Macrocytosis INR (Anticoag Therapy) 2.04 H Fibrinogen > 230.1 D-Dimer, Quantitative > 1050 H Patient Temperature Not Reportable ABG pH 7.34 L ABG pH (Temp Correct) Not Reportable ABG pCO2 26 L ABG pCO2 (Temp Corrct Not Reportable ABG pO2 177 H ABG pO2 (Temp Correct Not Reportable ABG HCO3 17.1 L ABG O2 Saturation 99.9 H ABG Base Excess -10.1 L Respiration Rate Not Reportable O2 Delivery Device Nrb Ventilator Type Not Reportable Vent Mode Not Reportable FiO2 Not Reportable Inspiratory Time Not Reportable PEEP Not Reportable Pressure Support Not Reportable Pressure Control Not Reportable EPAP Not Reportable IPAP Not Reportable BiPAP Not Reportable Sodium Potassium Chloride Carbon Dioxide Anion Gap BUN Creatinine Est GFR ( Amer) Est GFR (Non-Af Amer) BUN/Creatinine Ratio Glucose POC Glucose (mg/dL) Lactic Acid Uric Acid Calcium Ionized Calcium Magnesium Total Bilirubin AST ALT Alkaline Phosphatase Lactate Dehydrogenase Total Creatine Kinase Troponin I C-Reactive Protein B-Natriuretic Peptide 353 H Total Protein Albumin Globulin Albumin/Globulin Ratio Urine Color Urine Appearance Urine pH Ur Specific [place] Urine Protein Urine Ketones Urine Blood Urine Nitrate Urine Bilirubin Urine Urobilinogen Ur Leukocyte Esterase Urine WBC (Auto) Urine RBC (Auto) Urine Bacteria Hyaline Casts Ur Creatinine Concen U Sodium Concentration Urine Glucose Random Vancomycin Hepatitis B Antibody Hep Bs Antigen Hepatitis C Antibody Hepatitis C Ab Index Blood Type Antibody Screen 07/18/19 07/18/19 07/18/19 18:44 19:05 19:05 WBC RBC Hgb Hct MCV MCH MCHC RDW Plt Count MPV Neut % (Auto) Lymph % (Auto) [place] % (Auto) Eos % (Auto) Baso % (Auto) Absolute Neuts (auto) Absolute Lymphs (auto) Absolute Monos (auto) Absolute Eos (auto) Absolute Basos (auto) Absolute Nucleated RBC Immature Gran % Neutrophils % Band Neutrophils % Lymphocytes % Monocytes % Nucleated RBC % Normal RBC Morphology Hypochromasia Microcytosis Macrocytosis INR (Anticoag Therapy) Fibrinogen D-Dimer, Quantitative Patient Temperature ABG pH ABG pH (Temp Correct) ABG pCO2 ABG pCO2 (Temp Corrct ABG pO2 ABG pO2 (Temp Correct ABG HCO3 ABG O2 Saturation ABG Base Excess Respiration Rate O2 Delivery Device Ventilator Type Vent Mode FiO2 Inspiratory Time PEEP Pressure Support Pressure Control EPAP IPAP BiPAP Sodium Potassium Chloride Carbon Dioxide Anion Gap BUN Creatinine Est GFR ( Amer) Est GFR (Non-Af Amer) BUN/Creatinine Ratio Glucose POC Glucose (mg/dL) Lactic Acid Uric Acid Calcium Ionized Calcium Magnesium Total Bilirubin AST ALT Alkaline Phosphatase Lactate Dehydrogenase Total Creatine Kinase Troponin I C-Reactive Protein B-Natriuretic Peptide Total Protein Albumin Globulin Albumin/Globulin Ratio Urine Color Margarita Urine Appearance Cloudy Urine pH 5.0 Ur Specific [place] 1.024 Urine Protein 1+(30 mg/dl) A Urine Ketones Trace A Urine Blood 1+ A Urine Nitrate Negative Urine Bilirubin Negative Urine Urobilinogen Positive A Ur Leukocyte Esterase Negative Urine WBC (Auto) 2+(11-20/hpf) A Urine RBC (Auto) Absent Urine Bacteria Absent Hyaline Casts Present A Ur Creatinine Concen 293.02 U Sodium Concentration < 18 Urine Glucose 1+(50 mg/dl) A Random Vancomycin Hepatitis B Antibody Hep Bs Antigen Hepatitis C Antibody Hepatitis C Ab Index Blood Type O Positive Antibody Screen 07/18/19 07/18/19 07/18/19 22:30 22:30 22:30 WBC 0.4 L RBC 2.61 L Hgb 8.8 L Hct 28 L MCV 106 H MCH 34 H MCHC 32 RDW 17 H Plt Count 17 L* MPV 9.3 Neut % (Auto) 68.3 Lymph % (Auto) 28.9 [place] % (Auto) 0.7 Eos % (Auto) 0.4 Baso % (Auto) 1.7 Absolute Neuts (auto) 0.3 L* Absolute Lymphs (auto) 0.1 L Absolute Monos (auto) 0.0 Absolute Eos (auto) 0.0 Absolute Basos (auto) 0.0 Absolute Nucleated RBC 0.0 Immature Gran % Neutrophils % Band Neutrophils % Lymphocytes % Monocytes % Nucleated RBC % 0.2 Normal RBC Morphology Hypochromasia Microcytosis Macrocytosis INR (Anticoag Therapy) Fibrinogen D-Dimer, Quantitative Patient Temperature ABG pH ABG pH (Temp Correct) ABG pCO2 ABG pCO2 (Temp Corrct ABG pO2 ABG pO2 (Temp Correct ABG HCO3 ABG O2 Saturation ABG Base Excess Respiration Rate O2 Delivery Device Ventilator Type Vent Mode FiO2 Inspiratory Time PEEP Pressure Support Pressure Control EPAP IPAP BiPAP Sodium 138 Potassium 4.2 Chloride 107 Carbon Dioxide 17 L Anion Gap 14 H BUN 36 H Creatinine 2.45 H Est GFR ( Amer) 32.6 Est GFR (Non-Af Amer) 26.9 BUN/Creatinine Ratio 14.7 Glucose 24 L* POC Glucose (mg/dL) Lactic Acid Uric Acid Calcium 7.4 L Ionized Calcium Magnesium Total Bilirubin AST ALT Alkaline Phosphatase Lactate Dehydrogenase Total Creatine Kinase Troponin I 0.25 H* C-Reactive Protein B-Natriuretic Peptide Total Protein Albumin Globulin Albumin/Globulin Ratio Urine Color Urine Appearance Urine pH Ur Specific [place] Urine Protein Urine Ketones Urine Blood Urine Nitrate Urine Bilirubin Urine Urobilinogen Ur Leukocyte Esterase Urine WBC (Auto) Urine RBC (Auto) Urine Bacteria Hyaline Casts Ur Creatinine Concen U Sodium Concentration Urine Glucose Random Vancomycin Hepatitis B Antibody Hep Bs Antigen Hepatitis C Antibody Hepatitis C Ab Index Blood Type O Positive Antibody Screen Negative 07/18/19 07/18/19 07/18/19 22:30 23:10 23:32 WBC RBC Hgb Hct MCV MCH MCHC RDW Plt Count MPV Neut % (Auto) Lymph % (Auto) [place] % (Auto) Eos % (Auto) Baso % (Auto) Absolute Neuts (auto) Absolute Lymphs (auto) Absolute Monos (auto) Absolute Eos (auto) Absolute Basos (auto) Absolute Nucleated RBC Immature Gran % Neutrophils % Band Neutrophils % Lymphocytes % Monocytes % Nucleated RBC % Normal RBC Morphology Hypochromasia Microcytosis Macrocytosis INR (Anticoag Therapy) Fibrinogen D-Dimer, Quantitative Patient Temperature Not Reportable ABG pH < 7.00 L* ABG pH (Temp Correct) Not Reportable ABG pCO2 65 H ABG pCO2 (Temp Corrct Not Reportable ABG pO2 55 L* ABG pO2 (Temp Correct Not Reportable ABG HCO3 TNP ABG O2 Saturation 78.6 L ABG Base Excess TNP Respiration Rate 12 O2 Delivery Device vent Ventilator Type Vent Mode pcv FiO2 100 Inspiratory Time 1.0 PEEP 8 Pressure Support Pressure Control 28 EPAP Not Reportable IPAP Not Reportable BiPAP Not Reportable Sodium Potassium Chloride Carbon Dioxide Anion Gap BUN Creatinine Est GFR ( Amer) Est GFR (Non-Af Amer) BUN/Creatinine Ratio Glucose POC Glucose (mg/dL) 124 H Lactic Acid 11.8 H* Uric Acid Calcium Ionized Calcium Magnesium Total Bilirubin AST ALT Alkaline Phosphatase Lactate Dehydrogenase Total Creatine Kinase Troponin I C-Reactive Protein B-Natriuretic Peptide Total Protein Albumin Globulin Albumin/Globulin Ratio Urine Color Urine Appearance Urine pH Ur Specific [place] Urine Protein Urine Ketones Urine Blood Urine Nitrate Urine Bilirubin Urine Urobilinogen Ur Leukocyte Esterase Urine WBC (Auto) Urine RBC (Auto) Urine Bacteria Hyaline Casts Ur Creatinine Concen U Sodium Concentration Urine Glucose Random Vancomycin Hepatitis B Antibody Hep Bs Antigen Hepatitis C Antibody Hepatitis C Ab Index Blood Type Antibody Screen 07/19/19 07/19/19 07/19/19 00:25 00:37 02:11 WBC RBC Hgb Hct MCV MCH MCHC RDW Plt Count MPV Neut % (Auto) Lymph % (Auto) [place] % (Auto) Eos % (Auto) Baso % (Auto) Absolute Neuts (auto) Absolute Lymphs (auto) Absolute Monos (auto) Absolute Eos (auto) Absolute Basos (auto) Absolute Nucleated RBC Immature Gran % Neutrophils % Band Neutrophils % Lymphocytes % Monocytes % Nucleated RBC % Normal RBC Morphology Hypochromasia Microcytosis Macrocytosis INR (Anticoag Therapy) Fibrinogen D-Dimer, Quantitative Patient Temperature Not Reportable ABG pH < 7.00 L* ABG pH (Temp Correct) Not Reportable ABG pCO2 66 H ABG pCO2 (Temp Corrct Not Reportable ABG pO2 66 L ABG pO2 (Temp Correct Not Reportable ABG HCO3 TNP ABG O2 Saturation 89.4 L ABG Base Excess TNP Respiration Rate 16 O2 Delivery Device vent Ventilator Type 500 Vent Mode cmv FiO2 100 Inspiratory Time 0.75 PEEP 8 Pressure Support Not Reportable Pressure Control Not Reportable EPAP Not Reportable IPAP Not Reportable BiPAP Not Reportable Sodium Potassium Chloride Carbon Dioxide Anion Gap BUN Creatinine Est GFR ( Amer) Est GFR (Non-Af Amer) BUN/Creatinine Ratio Glucose POC Glucose (mg/dL) 64 L 129 H Lactic Acid Uric Acid Calcium Ionized Calcium Magnesium Total Bilirubin AST ALT Alkaline Phosphatase Lactate Dehydrogenase Total Creatine Kinase Troponin I C-Reactive Protein B-Natriuretic Peptide Total Protein Albumin Globulin Albumin/Globulin Ratio Urine Color Urine Appearance Urine pH Ur Specific [place] Urine Protein Urine Ketones Urine Blood Urine Nitrate Urine Bilirubin Urine Urobilinogen Ur Leukocyte Esterase Urine WBC (Auto) Urine RBC (Auto) Urine Bacteria Hyaline Casts Ur Creatinine Concen U Sodium Concentration Urine Glucose Random Vancomycin Hepatitis B Antibody Hep Bs Antigen Hepatitis C Antibody Hepatitis C Ab Index Blood Type Antibody Screen 07/19/19 07/19/19 07/19/19 02:50 03:23 03:23 WBC 0.4 L RBC 2.74 L Hgb 9.2 L Hct 29 L MCV 107 H MCH 33 H MCHC 31 RDW 17 H Plt Count 11 L* MPV 9.5 Neut % (Auto) 37.9 Lymph % (Auto) 38.6 [place] % (Auto) 22.5 Eos % (Auto) 0.3 Baso % (Auto) 0.7 Absolute Neuts (auto) 0.1 L* Absolute Lymphs (auto) 0.1 L Absolute Monos (auto) 0.1 Absolute Eos (auto) 0.0 Absolute Basos (auto) 0.0 Absolute Nucleated RBC TNP Immature Gran % Neutrophils % Band Neutrophils % Lymphocytes % Monocytes % Nucleated RBC % TNP Normal RBC Morphology Hypochromasia Microcytosis Macrocytosis INR (Anticoag Therapy) Fibrinogen D-Dimer, Quantitative Patient Temperature Not Reportable ABG pH 7.01 L* ABG pH (Temp Correct) Not Reportable ABG pCO2 52 H ABG pCO2 (Temp Corrct Not Reportable ABG pO2 55 L* ABG pO2 (Temp Correct Not Reportable ABG HCO3 10.4 L ABG O2 Saturation 83.0 L ABG Base Excess -18.0 L Respiration Rate 20 O2 Delivery Device vent Ventilator Type 600 Vent Mode cmv FiO2 100 Inspiratory Time 0.75 PEEP 10 Pressure Support Not Reportable Pressure Control Not Reportable EPAP Not Reportable IPAP Not Reportable BiPAP Not Reportable Sodium 136 Potassium 4.6 Chloride 107 Carbon Dioxide 14 L* Anion Gap 15 H BUN 36 H Creatinine 2.73 H Est GFR ( Amer) 28.7 Est GFR (Non-Af Amer) 23.8 BUN/Creatinine Ratio 13.2 Glucose 85 POC Glucose (mg/dL) Lactic Acid Uric Acid Calcium 7.1 L Ionized Calcium Magnesium Total Bilirubin 3.20 H AST 872 H ALT 323 H Alkaline Phosphatase 48 Lactate Dehydrogenase Total Creatine Kinase 5327 H Troponin I 0.31 H* C-Reactive Protein B-Natriuretic Peptide Total Protein 3.9 L Albumin 1.9 L Globulin 2.0 Albumin/Globulin Ratio 1.0 Urine Color Urine Appearance Urine pH Ur Specific [place] Urine Protein Urine Ketones Urine Blood Urine Nitrate Urine Bilirubin Urine Urobilinogen Ur Leukocyte Esterase Urine WBC (Auto) Urine RBC (Auto) Urine Bacteria Hyaline Casts Ur Creatinine Concen U Sodium Concentration Urine Glucose Random Vancomycin Hepatitis B Antibody Hep Bs Antigen Hepatitis C Antibody Hepatitis C Ab Index Blood Type Antibody Screen 07/19/19 07/19/19 07/19/19 03:23 04:00 06:00 WBC RBC Hgb Hct MCV MCH MCHC RDW Plt Count MPV Neut % (Auto) Lymph % (Auto) [place] % (Auto) Eos % (Auto) Baso % (Auto) Absolute Neuts (auto) Absolute Lymphs (auto) Absolute Monos (auto) Absolute Eos (auto) Absolute Basos (auto) Absolute Nucleated RBC Immature Gran % Neutrophils % Band Neutrophils % Lymphocytes % Monocytes % Nucleated RBC % Normal RBC Morphology Hypochromasia Microcytosis Macrocytosis INR (Anticoag Therapy) Fibrinogen D-Dimer, Quantitative Patient Temperature ABG pH ABG pH (Temp Correct) ABG pCO2 ABG pCO2 (Temp Corrct ABG pO2 ABG pO2 (Temp Correct ABG HCO3 ABG O2 Saturation ABG Base Excess Respiration Rate O2 Delivery Device Ventilator Type Vent Mode FiO2 Inspiratory Time PEEP Pressure Support Pressure Control EPAP IPAP BiPAP Sodium 139 Potassium 5.0 Chloride 106 Carbon Dioxide 14 L* Anion Gap 19 H BUN 35 H Creatinine 3.03 H Est GFR ( Amer) 25.5 Est GFR (Non-Af Amer) 21.1 BUN/Creatinine Ratio 11.6 Glucose 62 L POC Glucose (mg/dL) 84 Lactic Acid 12.1 H* Uric Acid Calcium 7.2 L Ionized Calcium Magnesium Total Bilirubin AST ALT Alkaline Phosphatase Lactate Dehydrogenase Total Creatine Kinase Troponin I 0.39 H* C-Reactive Protein B-Natriuretic Peptide Total Protein Albumin Globulin Albumin/Globulin Ratio Urine Color Urine Appearance Urine pH Ur Specific [place] Urine Protein Urine Ketones Urine Blood Urine Nitrate Urine Bilirubin Urine Urobilinogen Ur Leukocyte Esterase Urine WBC (Auto) Urine RBC (Auto) Urine Bacteria Hyaline Casts Ur Creatinine Concen U Sodium Concentration Urine Glucose Random Vancomycin 14.7 Hepatitis B Antibody Hep Bs Antigen Hepatitis C Antibody Hepatitis C Ab Index Blood Type Antibody Screen 07/19/19 07/19/19 07/19/19 06:00 06:00 06:00 WBC 0.3 L RBC 2.46 L Hgb 8.3 L Hct 27 L MCV 109 H MCH 34 H MCHC 31 RDW 17 H Plt Count 37 L D MPV 8.0 Neut % (Auto) 55.2 Lymph % (Auto) 40.4 [place] % (Auto) 3.0 Eos % (Auto) 0.9 Baso % (Auto) 0.5 Absolute Neuts (auto) 0.2 L* Absolute Lymphs (auto) 0.1 L Absolute Monos (auto) 0.0 Absolute Eos (auto) 0.0 Absolute Basos (auto) 0.0 Absolute Nucleated RBC TNP Immature Gran % Neutrophils % Band Neutrophils % Lymphocytes % Monocytes % Nucleated RBC % TNP Normal RBC Morphology Hypochromasia Microcytosis Macrocytosis INR (Anticoag Therapy) 3.33 H Fibrinogen D-Dimer, Quantitative Patient Temperature ABG pH ABG pH (Temp Correct) ABG pCO2 ABG pCO2 (Temp Corrct ABG pO2 ABG pO2 (Temp Correct ABG HCO3 ABG O2 Saturation ABG Base Excess Respiration Rate O2 Delivery Device Ventilator Type Vent Mode FiO2 Inspiratory Time PEEP Pressure Support Pressure Control EPAP IPAP BiPAP Sodium Potassium Chloride Carbon Dioxide Anion Gap BUN Creatinine Est GFR ( Amer) Est GFR (Non-Af Amer) BUN/Creatinine Ratio Glucose POC Glucose (mg/dL) Lactic Acid Uric Acid Calcium Ionized Calcium 0.96 L Magnesium Total Bilirubin AST ALT Alkaline Phosphatase Lactate Dehydrogenase Total Creatine Kinase Troponin I C-Reactive Protein B-Natriuretic Peptide Total Protein Albumin Globulin Albumin/Globulin Ratio Urine Color Urine Appearance Urine pH Ur Specific [place] Urine Protein Urine Ketones Urine Blood Urine Nitrate Urine Bilirubin Urine Urobilinogen Ur Leukocyte Esterase Urine WBC (Auto) Urine RBC (Auto) Urine Bacteria Hyaline Casts Ur Creatinine Concen U Sodium Concentration Urine Glucose Random Vancomycin Hepatitis B Antibody Hep Bs Antigen Hepatitis C Antibody Hepatitis C Ab Index Blood Type Antibody Screen 07/19/19 07/19/19 07/19/19 08:05 08:15 10:38 WBC RBC Hgb Hct MCV MCH MCHC RDW Plt Count MPV Neut % (Auto) Lymph % (Auto) [place] % (Auto) Eos % (Auto) Baso % (Auto) Absolute Neuts (auto) Absolute Lymphs (auto) Absolute Monos (auto) Absolute Eos (auto) Absolute Basos (auto) Absolute Nucleated RBC Immature Gran % Neutrophils % Band Neutrophils % Lymphocytes % Monocytes % Nucleated RBC % Normal RBC Morphology Hypochromasia Microcytosis Macrocytosis INR (Anticoag Therapy) Fibrinogen D-Dimer, Quantitative Patient Temperature 36.4 ABG pH < 7.00 L* ABG pH (Temp Correct) Not Reportable ABG pCO2 58 H ABG pCO2 (Temp Corrct Not Reportable ABG pO2 62 L ABG pO2 (Temp Correct Not Reportable ABG HCO3 TNP ABG O2 Saturation 91.9 L ABG Base Excess TNP Respiration Rate 24 O2 Delivery Device vent Ventilator Type 600 Vent Mode Cmv FiO2 100 Inspiratory Time .75 PEEP 15 Pressure Support Not Reportable Pressure Control Not Reportable EPAP Not Reportable IPAP Not Reportable BiPAP Not Reportable Sodium 141 Potassium 5.6 H Chloride 105 Carbon Dioxide 14 L* Anion Gap 22 H BUN 35 H Creatinine 3.46 H Est GFR ( Amer) 21.9 Est GFR (Non-Af Amer) 18.1 BUN/Creatinine Ratio 10.1 Glucose 102 H POC Glucose (mg/dL) 121 H Lactic Acid Uric Acid Calcium 7.4 L Ionized Calcium Magnesium Total Bilirubin 3.00 H AST 2498 H ALT 733 H Alkaline Phosphatase 47 Lactate Dehydrogenase Total Creatine Kinase Troponin I C-Reactive Protein B-Natriuretic Peptide Total Protein 3.8 L Albumin 1.9 L Globulin 1.9 L Albumin/Globulin Ratio 1.0 Urine Color Urine Appearance Urine pH Ur Specific [place] Urine Protein Urine Ketones Urine Blood Urine Nitrate Urine Bilirubin Urine Urobilinogen Ur Leukocyte Esterase Urine WBC (Auto) Urine RBC (Auto) Urine Bacteria Hyaline Casts Ur Creatinine Concen U Sodium Concentration Urine Glucose Random Vancomycin Hepatitis B Antibody Hep Bs Antigen Hepatitis C Antibody Hepatitis C Ab Index Blood Type Antibody Screen 07/19/19 07/19/19 07/19/19 10:38 10:38 11:35 WBC RBC Hgb Hct MCV MCH MCHC RDW Plt Count MPV Neut % (Auto) Lymph % (Auto) [place] % (Auto) Eos % (Auto) Baso % (Auto) Absolute Neuts (auto) Absolute Lymphs (auto) Absolute Monos (auto) Absolute Eos (auto) Absolute Basos (auto) Absolute Nucleated RBC Immature Gran % Neutrophils % Band Neutrophils % Lymphocytes % Monocytes % Nucleated RBC % Normal RBC Morphology Hypochromasia Microcytosis Macrocytosis INR (Anticoag Therapy) Fibrinogen D-Dimer, Quantitative Patient Temperature ABG pH ABG pH (Temp Correct) ABG pCO2 ABG pCO2 (Temp Corrct ABG pO2 ABG pO2 (Temp Correct ABG HCO3 ABG O2 Saturation ABG Base Excess Respiration Rate O2 Delivery Device Ventilator Type Vent Mode FiO2 Inspiratory Time PEEP Pressure Support Pressure Control EPAP IPAP BiPAP Sodium Potassium Chloride Carbon Dioxide Anion Gap BUN Creatinine Est GFR ( Amer) Est GFR (Non-Af Amer) BUN/Creatinine Ratio Glucose POC Glucose (mg/dL) 124 H Lactic Acid 18.1 H* Uric Acid Calcium Ionized Calcium Magnesium Total Bilirubin AST ALT Alkaline Phosphatase Lactate Dehydrogenase Total Creatine Kinase Troponin I C-Reactive Protein B-Natriuretic Peptide Total Protein Albumin Globulin Albumin/Globulin Ratio Urine Color Urine Appearance Urine pH Ur Specific [place] Urine Protein Urine Ketones Urine Blood Urine Nitrate Urine Bilirubin Urine Urobilinogen Ur Leukocyte Esterase Urine WBC (Auto) Urine RBC (Auto) Urine Bacteria Hyaline Casts Ur Creatinine Concen U Sodium Concentration Urine Glucose Random Vancomycin Hepatitis B Antibody Not immune A Hep Bs Antigen Nonreactive Hepatitis C Antibody Reactive A Hepatitis C Ab Index 28.70 Blood Type Antibody Screen 07/19/19 07/19/19 07/19/19 15:15 15:15 15:15 WBC 0.3 L RBC 2.19 L Hgb 7.4 L Hct 24 L MCV 110 H MCH 34 H MCHC 31 RDW 17 H Plt Count 10 L* D MPV 8.5 Neut % (Auto) 35.9 Lymph % (Auto) 58.1 [place] % (Auto) 2.6 Eos % (Auto) 1.2 Baso % (Auto) 2.2 Absolute Neuts (auto) 0.1 L* Absolute Lymphs (auto) 0.2 L Absolute Monos (auto) 0.0 Absolute Eos (auto) 0.0 Absolute Basos (auto) 0.0 Absolute Nucleated RBC 0.0 Immature Gran % Neutrophils % Band Neutrophils % Lymphocytes % Monocytes % Nucleated RBC % 0.0 Normal RBC Morphology Hypochromasia Microcytosis Macrocytosis INR (Anticoag Therapy) Fibrinogen D-Dimer, Quantitative Patient Temperature ABG pH ABG pH (Temp Correct) ABG pCO2 ABG pCO2 (Temp Corrct ABG pO2 ABG pO2 (Temp Correct ABG HCO3 ABG O2 Saturation ABG Base Excess Respiration Rate O2 Delivery Device Ventilator Type Vent Mode FiO2 Inspiratory Time PEEP Pressure Support Pressure Control EPAP IPAP BiPAP Sodium 136 Potassium 5.0 Chloride 99 L Carbon Dioxide 21 L Anion Gap 16 H BUN 22 Creatinine 2.19 H Est GFR ( Amer) 37.1 Est GFR (Non-Af Amer) 30.6 BUN/Creatinine Ratio 10.0 Glucose 192 H POC Glucose (mg/dL) Lactic Acid 15.7 H* Uric Acid Calcium 6.7 L Ionized Calcium Magnesium Total Bilirubin 3.40 H AST 4734 H ALT 1270 H Alkaline Phosphatase 58 Lactate Dehydrogenase Total Creatine Kinase Troponin I C-Reactive Protein B-Natriuretic Peptide Total Protein 3.8 L Albumin 1.9 L Globulin 1.9 L Albumin/Globulin Ratio 1.0 Urine Color Urine Appearance Urine pH Ur Specific [place] Urine Protein Urine Ketones Urine Blood Urine Nitrate Urine Bilirubin Urine Urobilinogen Ur Leukocyte Esterase Urine WBC (Auto) Urine RBC (Auto) Urine Bacteria Hyaline Casts Ur Creatinine Concen U Sodium Concentration Urine Glucose Random Vancomycin Hepatitis B Antibody Hep Bs Antigen Hepatitis C Antibody Hepatitis C Ab Index Blood Type Antibody Screen 07/19/19 16:25 WBC RBC Hgb Hct MCV MCH MCHC RDW Plt Count MPV Neut % (Auto) Lymph % (Auto) [place] % (Auto) Eos % (Auto) Baso % (Auto) Absolute Neuts (auto) Absolute Lymphs (auto) Absolute Monos (auto) Absolute Eos (auto) Absolute Basos (auto) Absolute Nucleated RBC Immature Gran % Neutrophils % Band Neutrophils % Lymphocytes % Monocytes % Nucleated RBC % Normal RBC Morphology Hypochromasia Microcytosis Macrocytosis INR (Anticoag Therapy) Fibrinogen D-Dimer, Quantitative Patient Temperature ABG pH ABG pH (Temp Correct) ABG pCO2 ABG pCO2 (Temp Corrct ABG pO2 ABG pO2 (Temp Correct ABG HCO3 ABG O2 Saturation ABG Base Excess Respiration Rate O2 Delivery Device Ventilator Type Vent Mode FiO2 Inspiratory Time PEEP Pressure Support Pressure Control EPAP IPAP BiPAP Sodium Potassium Chloride Carbon Dioxide Anion Gap BUN Creatinine Est GFR ( Amer) Est GFR (Non-Af Amer) BUN/Creatinine Ratio Glucose POC Glucose (mg/dL) 119 H Lactic Acid Uric Acid Calcium Ionized Calcium Magnesium Total Bilirubin AST ALT Alkaline Phosphatase Lactate Dehydrogenase Total Creatine Kinase Troponin I C-Reactive Protein B-Natriuretic Peptide Total Protein Albumin Globulin Albumin/Globulin Ratio Urine Color Urine Appearance Urine pH Ur Specific Burton Urine Protein Urine Ketones Urine Blood Urine Nitrate Urine Bilirubin Urine Urobilinogen Ur Leukocyte Esterase Urine WBC (Auto) Urine RBC (Auto) Urine Bacteria Hyaline Casts Ur Creatinine Concen U Sodium Concentration Urine Glucose Random Vancomycin Hepatitis B Antibody Hep Bs Antigen Hepatitis C Antibody Hepatitis C Ab Index Blood Type Antibody Screen Plan: Critical Care Time:
[2019-07-19 19:20] LABS: CO2 Carbon Dioxide 14 mmol/L (22-32)
[2019-07-19 19:22] LABS: Troponin I 0.31 ng/mL (<0.04)
[2019-07-19] MEDS ORDERED: Piperacillin/Tazobac ADVAN(*) 3.375 GM in NS 0.9% 100 ML* 100 ML IVPB ONE (19:32)
[2019-07-19] MEDS ORDERED: Zosyn per Pharmacy* NOTE FOLLOW UP SCH (20:00)
[2019-07-19] MEDS ORDERED: Vasopressin* 100 UNITS in NS 0.9% 250 ML* 245 ML IV SCH (22:44)
[2019-07-19 22:59] VITALS: BP 116/73
[2019-07-19 23:02] LABS: Hematocrit 18 % (42-52); Hemoglobin 5.6 g/dL (14.0-18.0); Mean Corpuscular HGB Conc 31 g/dL (31-36); Mean Corpuscular Hemoglobin 36 pg (27-31); Mean Corpuscular Volume 116 fL (80-94); Mean Platelet Volume 8.9 fL (7.4-10.4); Platelet Count 5 10^3/uL (150-450); Red Blood Count 1.58 10^6 /uL (4.18-5.48); Red Cell Distribution Width 17 % (10-15); White Blood Count 0.3 10^3/uL (3.5-10.8)
--- NOTE | 2019-07-19 23:10 | PN ---
Hospitalist Progress Note Date of Service: 07/19/19 NOTE Called to bedside by RNs. Pt had gone into VFib without palpable or dopplerable pulses around 22:54. Discussion between RN and family and friends at bedside confirmed that patient was still a DNR. Patient went into asystole at 22:57. Pt with no palpable pulses, auscultated heart sounds, response to noxious stimuli. Pupils fixed and mid-dilated. Patient pronounced with time of 22:57.
[2019-07-19 23:31] LABS: ABS Lymphocytes 0.2 10^3/ul (1.0-4.8); ABS Neutrophils 0.1 10^3/ul (1.5-7.7); Eosinophil % 0.2 %; Lymphocyte % 50.2 %; Nucleated Red Blood Cells % 0.4
[2019-07-20] MEDS ORDERED: ZOSYN 3.375 GM Q8H per EXTENDED INFUSION IVPB SCH ×2 (00:30)
[2019-07-20] MEDS ORDERED: Vancomycin Random Level* NOTE FOLLOW UP ONE (06:00)
[2019-07-22 16:13] LABS: TB1 Ag minus Nil Result -0.01 IU/mL; TB2 Ag minus Nil Result -0.03 IU/mL
[2019-07-22 16:16] LABS: QuantiferonTb Gold Plus Result Indeterminate (Negative)
--- NOTE | 2019-07-25 19:13 | PN ---
DIALYSIS NOTE: DATE OF DIALYSIS: 07/19/19 SUBJECTIVE: The patient is seen and examined during dialysis, barely tolerating the procedure. Vitals and labs have been reviewed. PHYSICAL EXAM: Unchanged from prior physical exam dictated in the history and physical and in the consult report. ASSESSMENT AND PLAN: 1. Acute kidney injury secondary to acute tubular necrosis in the setting of severe septic shock. Please refer to the dictated consult for full details. 2. The patient is seen during dialysis and barely tolerating the procedure needing 3 pressors currently to keep his blood pressures. 3. Noted to be in atrial fibrillation, but did not have any other adverse rhythms through his dialysis. 4. Overall, the patient's condition is extremely critical, lactate had already gone up to 18 and the patient is severely hypotensive, neutropenic, and septic. 5. We will follow closely with the team. 6. The patient is completing his 2-hour session with pressor support. [id number]/CPS #: [id number] MTDD
== END 2019-07-19 22:57 | disposition expired | DRG 720 ==
LOC: ED 18:30 → ICU 20:10
PROVIDERS: ADMIT Internal Medicine; ATTEND Internal Medicine
PROC: 0BH17EZ Insertion of Endotracheal Airway into Trachea, Via Natural or Artificial Opening (ICD-10-PCS; principal; 2019-07-18)
PROC: 5A1945Z Respiratory Ventilation, 24-96 Consecutive Hours (ICD-10-PCS; 2019-07-18)
PROC: 06HM33Z Insertion of Infusion Device into Right Femoral Vein, Percutaneous Approach (ICD-10-PCS; 2019-07-19)
PROC: B54BZZA Ultrasonography of Right Lower Extremity Veins, Guidance (ICD-10-PCS; 2019-07-19)
PROC: 5A1D70Z Performance of Urinary Filtration, Intermittent, Less than 6 Hours Per Day (ICD-10-PCS; 2019-07-19)
PROC: 30233K1 Transfusion of Nonautologous Frozen Plasma into Peripheral Vein, Percutaneous Approach (ICD-10-PCS; 2019-07-19)
PROC: 30233R1 Transfusion of Nonautologous Platelets into Peripheral Vein, Percutaneous Approach (ICD-10-PCS; 2019-07-19)
DX: A41.51 Sepsis due to Escherichia coli [E. coli] (principal); J96.00 Acute respiratory failure, unspecified whether with hypoxia or hypercapnia; R65.21 Severe sepsis with septic shock; G93.40 Encephalopathy, unspecified; I47.2 Ventricular tachycardia; N17.9 Acute kidney failure, unspecified; E87.2 Acidosis; C85.10 Unspecified B-cell lymphoma, unspecified site; D70.9 Neutropenia, unspecified; I95.9 Hypotension, unspecified; Z66 Do not resuscitate; E87.5 Hyperkalemia; K70.31 Alcoholic cirrhosis of liver with ascites; R50.81 Fever presenting with conditions classified elsewhere; B18.2 Chronic viral hepatitis C; F10.20 Alcohol dependence, uncomplicated; I10 Essential (primary) hypertension; R74.8 Abnormal levels of other serum enzymes; Z79.891 Long term (current) use of opiate analgesic; Z79.899 Other long term (current) drug therapy; Z82.49 Family history of ischemic heart disease and other diseases of the circulatory system; Z80.3 Family history of malignant neoplasm of breast; Z80.0 Family history of malignant neoplasm of digestive organs; F17.210 Nicotine dependence, cigarettes, uncomplicated
CPT/HCPCS: 36415; 36600; 70450; 71045; 71250; 74176; 80048; 80053; 80202; 81003; 81015; 82271; 82330; 82550; 82570; 82803; 83605; 83615; 83735; 83880; 84300; 84484; 84550; 85025; 85060; 85379; 85384; 85610; 86140; 86481; 86706; 86803; 86850; 86900; 86901; 86927; 87040; 87070; 87077; 87086; 87186; 87205; 87340; 87522; 87641; 87899; 90935; 93005; 93306; 93970; 94002; 96374; 96375; 99233; 99285; A9270-GY; C8929; G0257; J0610; J0692; J0744; J1644; J2060; J2543; J2704; J3010; J3370; J3475; J7060; P9017; P9035; Q5101